=== PATIENT | female | born 1975 | race African-American/Black ===

== ENCOUNTER 2016-07-07 15:59 | Inpatient (IN) | payer SELFPAY ==
[~2016-07-07] VITALS: Ht 167.6 cm; Wt 126.1 kg
[2016-07-07] VITALS (8 sets, daily range): BP systolic 151–186; BP diastolic 77–98
[~2016-07-07 15:59] MED LIST: CALCIUM CHLORIDE 1,000 MG/10 ML DISP.SYRIN IV ONE; EPINEPHRINE 1 MG/10 ML DISP.SYRIN. ONE; EPINEPHRINE 30 MG/30 ML VIAL. ONE; SODIUM BICARB ADULT 8.4% 50 MEQ/50 ML DISP.SYRIN. ONE
[2016-07-07] MEDS: IV NORMAL SALINE 1000ML BAG 1,000 ML IV SCH ×7 (16:10→23:25)
[2016-07-07] MEDS ORDERED: PROPOFOL 50 ML IV ONE (16:29)
[2016-07-07 17:12] LABS: HCO3 ABG 11 mmol/L (21-28); PCO2 ABG 33 mmHg (35-46); PO2 ABG 305 mmHg (75-108); SAT O2 ABG 99 % (92-99)
[2016-07-07 17:13] LABS: PH ABG 7.15 (7.35-7.45)
[2016-07-07] MEDS: PROPOFOL 100 ML IV PRN ×2 (17:28→19:48)
[2016-07-07] MEDS ORDERED: MINERAL OIL/PETROLATUM,WHITE OPHTH OINT 3.5GM TUBE. OU PRN (17:30)
[2016-07-07] MEDS ORDERED: MORPHINE SULFATE 2 MG/ML DISP.SYRIN. IV PRN (17:30)
[2016-07-07] MEDS ORDERED: CALCIUM CHLORIDE 1,000 MG/10 ML DISP.SYRIN IV ONE ×2 (17:30→18:00)
[2016-07-07] MEDS ORDERED: MORPHINE SULFATE 4 MG/ML DISP.SYRIN. IV PRN (17:30)
[2016-07-07] MEDS ORDERED: MEPERIDINE PF 25 MG/ML VIAL. IV PRN (17:30)
[2016-07-07] MEDS ORDERED: VECURONIUM BOLUS 10 MG VIAL. IV PRN (17:30)
[2016-07-07] MEDS ORDERED: FENTANYL PF 100 MCG/2 ML VIAL. IV PRN ×3 (17:30)
[2016-07-07] MEDS ORDERED: 0.9 % SODIUM CHLORIDE 10 ML DISP.SYRIN. IV PRN (17:30)
[2016-07-07] MEDS ORDERED: LORAZEPAM 2 MG/ML VIAL IV PRN (17:30)
[2016-07-07 17:31] LABS: BASO # 0.1 x10^3/uL (0.0-0.2); BASO % 1 % (0-3); EOS % 2 % (0-3); HEMATOCRIT 42.5 % (36.0-47.0); HEMOGLOBIN 12.7 g/dL (12.0-15.5); LYMPH # 2.8 x10^3/uL (1.0-4.8); LYMPH % 28 % (24-48); MEAN CORPUSCULAR HEMOGLOBIN 30 pg (25-35); MEAN CORPUSCULAR HGB CONC 30 g/dL (31-37); MEAN CORPUSCULAR VOLUME 101 fL (79-100); MONO % 6 % (0-9); NEUT % 64 % (31-73); PLATELET COUNT 206 x10^3/uL (140-400); RED CELL DISTRIBUTION WIDTH 17.4 % (11.5-14.5); WHITE BLOOD COUNT 9.9 x10^3/uL (4.0-11.0)
[2016-07-07 17:35] LABS: INR 1.2 (0.8-1.1); PROTHROMBIN TIME PATIENT 14.5 SEC (11.7-14.0)
[2016-07-07 17:46] LABS: ALBUMIN 1.7 g/dL (3.4-5.0); CALCIUM 9.1 mg/dL (8.5-10.1); CREATININE 3.9 mg/dL (0.6-1.0); DIRECT BILIRUBIN 0.6 mg/dL (0.0-0.2); GFR 15.4; MAGNESIUM 2.1 mg/dL (1.8-2.4); TOTAL PROTEIN 6.5 g/dL (6.4-8.2)
[2016-07-07 17:55] LABS: POTASSIUM 2.8 mmol/L (3.5-5.1)
[2016-07-07] MEDS ORDERED: EPINEPHRINE 30 MG/30 ML VIAL. ONE (18:00)
[2016-07-07] MEDS: ACETAMINOPHEN 650 MG/20.3 ML SOLUTION. NG SCH (18:00)
[2016-07-07] MEDS ORDERED: DOPAMINE 400MG/250ML PREMIX BAG. IV ONE (18:00)
[2016-07-07] MEDS ORDERED: SODIUM BICARB ADULT 8.4% 50 MEQ/50 ML DISP.SYRIN. ONE ×2 (18:00)
[2016-07-07] MEDS ORDERED: EPINEPHRINE 1 MG/10 ML DISP.SYRIN. ONE (18:00)
[2016-07-07 18:17] LABS: BILIRUBIN,URINE SMALL (NEG); GLUCOSE,URINE >=1000 mg/dL (NEG); NITRITE,URINE NEGATIVE (NEG); PROTEIN,URINE >=300 mg/dL (NEG-TRACE)
[2016-07-07 18:18] LABS: % EOS 2 % (0-5); PLT ESTIMATE ADEQUATE (ADEQUATE)
[2016-07-07 18:19] LABS: ANISOCYTOSIS SLIGHT; POLYCHROMASIA SLIGHT
[2016-07-07 18:23] LABS: BARBITURATES NEG (NEG); BENZODIAZEPINES NEG (NEG); CANNABINOIDS NEG (NEG); COCAINE NEG (NEG); METHADONE NEG (NEG); OPIATES NEG (NEG); PHENCYCLIDINE NEG (NEG)
[2016-07-07 18:24] LABS: BACTERIA,URINE MODERATE /HPF (0-FEW); ETHANOL, URINE NEG (NEG); SQUAMOUS EPITHELIAL CELL,UR FEW /LPF
[2016-07-07 18:26] LABS: CKMB INDEX 1.8 % (0-4); CKMB MASS 5.8 ng/mL (0.0-3.6)
--- NOTE | 2016-07-07 18:45 | PHYS DOC ---
Past Medical History Past Medical History: CHF, Diabetes-Type II, Hypertension Additional Past Medical Histor: CKD on temp dialysis in 2016 Additional Past Surgical Histo: Temp dialysis catheter Social History Narrative: Unknown Adult General Chief Complaint Chief Complaint: CPR/FULL ARREST HPI HPI Patient is a 40 year old female who presents by EMS with ongoing chest compressions for cardiac arrest witnessed by friend in a public place. She became unresponsive acutely and was found in agonal rhythm by EMS. ACLS was started. She had a brief ROSC and then ACLS was started again for asystole. She was given epinephrine IV. iGel was placed by EMS for airway. Left tibial IO was placed by EMS. Family here gave past history and states she was in normal state of health prior to this. Review of Systems Review of Systems Unable to assess secondary to clinical status Current Medications Current Medications Current Medications Medications (Trade) Dose Ordered Sig/[place] Start Time Stop Time Status Last Admin Dose Admin Acetaminophen (Tylenol) 650 mg Q6HRS 07/07/16 18:00 07/08/16 17:59 Calcium Chloride 1000 mg 1,000 mg 1X ONCE 07/07/16 17:30 07/07/16 17:38 DC 07/07/16 17:18 1,000 MG Fentanyl Citrate 30 ml @ 2.5 mls/hr CONT PRN PRN 07/07/16 17:30 Fentanyl Citrate (Fentanyl 2ml Vial) 25 mcg PRN Q30MIN PRN 07/07/16 17:30 Lorazepam 1 mg 1 mg PRN Q30MIN PRN 07/07/16 17:30 Meperidine HCl (Demerol) 12.5 mg PRN Q30MIN PRN 07/07/16 17:30 Morphine Sulfate 4 mg PRN Q1HR PRN 07/07/16 17:30 Multi-Ingred Cream/Lotion/Oil/ Oint (Artificial Tears Eye Oint) 1 silvano PRN Q6HRS PRN 07/07/16 17:30 Propofol (Diprivan) 100 ml @ 0 mls/hr CONT PRN 07/07/16 17:30 07/07/16 19:48 15.8 MLS/HR Sodium Chloride (Iv Sodium Chloride 0.9% 1000ml Bag) 1,000 ml @ 1,000 mls/hr Q1H 07/07/16 17:25 07/07/16 20:04 1,000 MLS/HR Sodium Chloride (Normal Saline Flush) 3 ml QSHIFT PRN 07/07/16 17:30 Vecuronium [place] (Norcuron Bolus) 10 mg PRN Q30MIN PRN 07/07/16 17:30 Allergies Allergies Allergies Coded Allergies Type Severity Reaction Last Updated Verified No Known Drug Allergies 07/07/16 No Physical Exam Physical Exam Constitutional: Nonresponsive. [] HENT: Normocephalic, atraumatic, bilateral external ears normal, oropharynx moist, no oral exudates, nose normal. [] Eyes: Pupils equal and fixed mid. [] Neck: Normal range of motion, no palpable step-off, supple. [] Cardiovascular: Pulseless [] Lungs & Thorax: Equal bagged breath sounds, course bilaterally [] Abdomen: Bowel sounds normal, soft, no tenderness, distended. [] Skin: Warm, dry, no erythema, no rash. [] Back: No obvious deformity or discoloration. [] Extremities: No tenderness, ROM intact, 2 +bilateral LE edema. [] Neurologic: GCS 3. [] Psychologic: Unable to assess secondary to clinical status. [] Current Patient Data Vital Signs Vital Signs Date Time Temp Pulse Resp B/P Pulse Ox O2 Delivery O2 Flow Rate FiO2 07/07/16 18:00 89 Ventilator 07/07/16 18:00 76 20 149/65 Lab Values Laboratory Tests Test 07/07/16 16:00 07/07/16 16:30 White Blood Count 9.9x10^3/uL (4.0-11.0) Red Blood Count 4.20x10^6/uL (3.50-5.40) Hemoglobin 12.7g/dL (12.0-15.5) Hematocrit 42.5% (36.0-47.0) Mean Corpuscular Volume 101fL (79-100) H Mean Corpuscular Hemoglobin 30pg (25-35) Mean Corpuscular Hemoglobin Concent 30g/dL (31-37) L Red Cell Distribution Width 17.4% (11.5-14.5) H Platelet Count 206x10^3/uL (140-400) Neutrophils (%) (Auto) 64% (31-73) Lymphocytes (%) (Auto) 28% (24-48) Monocytes (%) (Auto) 6% (0-9) Eosinophils (%) (Auto) 2% (0-3) Basophils (%) (Auto) 1% (0-3) Neutrophils # (Auto) 6.3x10^3uL (1.8-7.7) Lymphocytes # (Auto) 2.8x10^3/uL (1.0-4.8) Monocytes # (Auto) 0.6x10^3/uL (0.0-1.1) Eosinophils # (Auto) 0.2x10^3/uL (0.0-0.7) Basophils # (Auto) 0.1x10^3/uL (0.0-0.2) Segmented Neutrophils % 51% (35-66) Band Neutrophils % 4% (0-9) Lymphocytes % 33% (24-48) Monocytes % 7% (0-10) Eosinophils % 2% (0-5) Metamyelocytes % 2% (0-0) H Myelocytes % 1% (0-0) H Platelet Estimate Adequate (ADEQUATE) Polychromasia Slight Anisocytosis Slight Prothrombin Time 14.5SEC (11.7-14.0) H Prothrombin Time INR 1.2 (0.8-1.1) H PTT 43SEC (24-38) H Sodium Level 138mmol/L (136-145) Potassium Level 2.8mmol/L (3.5-5.1) *L Chloride Level 101mmol/L (98-107) Carbon Dioxide Level 19mmol/L (21-32) L Anion Gap 18 (6-14) H Blood Urea Nitrogen 35mg/dL (7-20) H Creatinine 3.9mg/dL (0.6-1.0) H Estimated GFR (Cockcroft-Gault) 15.4 Glucose Level 612mg/dL (70-99) *H Glucose (Fingerstick) 401mg/dL (70-99) H Lactic Acid Level 8.8mmol/L (0.4-2.0) *H Calcium Level 9.1mg/dL (8.5-10.1) Magnesium Level 2.1mg/dL (1.8-2.4) Total Bilirubin 1.0mg/dL (0.2-1.0) Direct Bilirubin 0.6mg/dL (0.0-0.2) H Aspartate Amino Transferase (AST) 66U/L (15-37) H Alanine Aminotransferase (ALT) 53U/L (14-59) Alkaline Phosphatase 537U/L (46-116) H Creatine Kinase 323U/L (26-192) H Creatine Kinase MB (Mass) 5.8ng/mL (0.0-3.6) H Creatine Kinase MB Relative Index 1.8% (0-4) Troponin I Quantitative 0.194ng/mL (0.000-0.055) GJ-[id number]-C-Type Natriuretic Peptide 07399zc/mL (0-124) H Total Protein 6.5g/dL (6.4-8.2) Albumin 1.7g/dL (3.4-5.0) L Amylase Level 30U/L (25-115) O2 Saturation 99% (92-99) Arterial Blood pH 7.15 (7.35-7.45) *L Arterial Blood pCO2 at Patient Temp 33mmHg (35-46) L Arterial Blood pO2 at Patient Temp 305mmHg (75-108) H Arterial Blood HCO3 11mmol/L (21-28) L Arterial Blood Base Excess -17mmol/L (-3-3) L FiO2 100.0 Laboratory Tests 07/07/16 16:00 Laboratory Tests 07/07/16 16:00 EKG EKG EKG as interpreted by me as sinus tachycardia, rate 108, T wave inversions in lateral leads, doesn't meet STEMI criteria, MN 152, QTC 495, no ectopy Radiology/Procedures Radiology/Procedures Chest x-ray as interpreted by me as endotracheal tube appropriately placed, OG tube appropriately placed, and central venous line appropriately placed; haziness in right lung field Course & Med Decision Making Course & Med Decision Making Pertinent Labs and Imaging studies reviewed. (See chart for details) Patient arrest pulseless in PEA. Please see nursing notes for exact details of resuscitation. She was intubated by me with ease. I attempted placing central venous line in left femoral vein without success (because hit artery so changed location after holding pressure for >10 min achieving hemostasis) and right IJ without success (scar tissue would not allow guide wire to advance past 8cm), then placed right subclavian with some resistance of scar tissue but had good venous return and success. XR shows concern for pneumonia vs contusion vs edema. Broad spectrum antibiotics were started. She was given IVFs for ?acute on chronic renal failure; as well as lasix for likely some fluid overload. Discussed case with Dr. Rivera, who will admit. Cardiology, Pulmonology, and Nephrology consults placed. Discussed case with multiple family members. Dragon Disclaimer Dragon Disclaimer This electronic medical record was generated, in whole or in part, using a voice recognition dictation system. Intubation Procedure Intub Indication: Respiratory failure Consent: Unable to give consent due to emergent nature. Medications Used: see nursing note Procedure: The patient was placed in the appropriate position. Intubation was performed via glidescope curved blade, 7.5 endotracheal tube. Endotracheal tube secured 22 at the teeth. Some liquid vomitus was suctioned from pharynx. Initial confirmation of placement included bilateral breath sounds, tube fogging , adequate chest rise, adequate pulse oximetry reading. A chest x-ray to verify correct placement of the tube showed appropriate tube position. The patient tolerated the procedure well. Complications: none. Central Line Placement Proc Central Line Indication: Vascular access Consent: The patient provided consent for this procedure. Procedure: The patient was positioned appropriately and the skin over the right subclavian vein was prepped and draped in a sterile fashion. Ultrasound guidance utilized. A large bore needle was used to identify the vein. A guide wire was then inserted into the vein through the needle. A triple lumen catheter was then inserted into the vessel over the guide wire using the Seldinger technique. All ports showed good, free flowing blood return and were flushed with saline solution. The catheter was then securely fastened to the skin with sutures and covered with a sterile dressing. A post procedure X-ray was ordered. The patient tolerated the procedure well. Complications: none. [] Critical Care Time Critical care time was 75 minutes exclusive of procedures. Departure Departure Impression: Primary Impression: Cardiac arrest Additional Impression: Respiratory failure Disposition: ADMITTED INPATIENT Condition: CRITICAL Referrals: UNKNOWN PCP NAME (PCP) Problem Qualifiers Additional Impression: Respiratory failure Chronicity: acute Respiratory failure complication: hypoxia Qualified Code : J96.01 - Acute respiratory failure with hypoxia Bony GORDON MD Jul 07, 2016 18:45
[2016-07-07] MEDS ORDERED: LEVOFLOXACIN PER PHARMACY MC PRN (19:00)
[2016-07-07] MEDS ORDERED: VANCOMYCIN PER PHARMACY MC PRN (19:00)
[2016-07-07] MEDS ORDERED: PIP/TAZO PER PHARMACY MC PRN (19:00)
[2016-07-07] MEDS: POTASSIUM CHLORIDE 20MEQ 50 ML IV SCH ×3 (19:22→23:44)
--- NOTE | 2016-07-07 19:27 | PDOC1 ---
History and Physical Identification/Chief Complaint Chief Complaint CARDIAC ARREST Problems: Source Source: Caregiver, Chart review Past Medical History Past Medical History CHF, KIDNEY PROBLEMS, DM Family History Family History: Hypertension Current Problem List Problem List Problems Medical Problems: (1) Cardiac arrest Status: Acute (2) Respiratory failure Status: Acute Current Medications Current Medications Current Medications Medications (Trade) Dose Ordered Sig/[place] Start Time Stop Time Status Last Admin Dose Admin Acetaminophen (Tylenol) 650 mg PRN Q6HRS PRN 07/08/16 17:30 Aspirin (Aspirin) 300 mg DAILY 07/08/16 09:00 Calcium Chloride 1,000 mg 1X ONCE 07/07/16 17:30 07/07/16 17:38 DC 07/07/16 17:18 1,000 MG Chlorhexidine Gluconate (Peridex) 15 ml BID 07/07/16 21:00 Famotidine (Pepcid) 20 mg BID 07/07/16 21:00 Fentanyl Citrate 30 ml @ 2.5 mls/hr CONT PRN PRN 07/07/16 17:30 Fentanyl Citrate (Fentanyl 2ml Vial) 25 mcg PRN Q30MIN PRN 07/07/16 17:30 Furosemide 40 mg 40 mg 1X ONCE 07/07/16 19:30 07/07/16 19:31 Info 1 ea DAILY PRN 07/09/16 17:30 Levofloxacin/ Dextrose 150 ml @ 100 mls/hr 1X ONCE 07/07/16 19:30 07/07/16 20:59 Levofloxacin/ Dextrose 1 each 1 each PRN DAILY PRN 07/07/16 19:00 UNV Lorazepam 1 mg 1 mg PRN Q30MIN PRN 07/07/16 17:30 Meperidine HCl (Demerol) 12.5 mg PRN Q30MIN PRN 07/07/16 17:30 Morphine Sulfate 4 mg PRN Q1HR PRN 07/07/16 17:30 Multi-Ingred Cream/Lotion/Oil/ Oint (Artificial Tears Eye Oint) 1 silvano PRN Q6HRS PRN 07/07/16 17:30 Piperacillin Sod/ Tazobactam Sod (Zosyn Per Pharmacy) 1 each PRN DAILY PRN 07/07/16 19:00 UNV Piperacillin Sod/ Tazobactam Sod/ Sodium Chloride (Zosyn/Iv Sodium Chloride 0.9% 50ml) 50 ml @ 100 mls/hr 1X ONCE 07/07/16 19:30 07/07/16 19:59 Potassium Chloride 50 ml @ 50 mls/hr Q1H 07/07/16 19:30 07/07/16 21:29 07/07/16 19:22 50 MLS/HR Propofol (Diprivan) 100 ml @ 0 mls/hr CONT PRN 07/07/16 17:30 07/07/16 17:28 3.1 MLS/HR Sodium Chloride (Iv Sodium Chloride 0.9% 1000ml Bag) 1,000 ml @ 175 mls/hr 1X ONCE 07/07/16 19:30 07/08/16 01:12 Sodium Chloride (Normal Saline Flush) 3 ml QSHIFT PRN 07/07/16 17:30 Vancomycin HCl (Vanco Per Pharmacy) 1 each PRN DAILY PRN 07/07/16 19:00 UNV Vecuronium [place] (Norcuron Bolus) DOSE AT 0.1 mg/kg PRN Q30MIN PRN 07/07/16 17:30 UNV Allergies Allergies Allergies Coded Allergies Type Severity Reaction Last Updated Verified No Known Drug Allergies 07/07/16 No ROS Review of System not able to obtain, Pt is intubated and sedated. Physical Exam Physical Exam GEN.: Intubated and Sedated. obese HEENT: Head is normocephalic, atraumatic NECK: Supple. subclavian venous access. LUNGS: basal rales. normal airflow. HEART: RRR, S1, S2 present. Peripheral pulses intact ABDOMEN: Soft, nontender. Positive bowel sounds. EXTREMITIES: + 2 edema. NEUROLOGIC: Intubated, sedated. PSYCHIATRIC: SKIN: dry, Vitals Vitals Vital Signs Date Time Temp Pulse Resp B/P Pulse Ox O2 Delivery O2 Flow Rate FiO2 07/07/16 18:00 89 Ventilator 07/07/16 16:21 95 163/70 Labs Labs Laboratory Tests Test 07/07/16 16:00 07/07/16 16:30 07/07/16 18:11 White Blood Count 9.9x10^3/uL (4.0-11.0) Red Blood Count 4.20x10^6/uL (3.50-5.40) Hemoglobin 12.7g/dL (12.0-15.5) Hematocrit 42.5% (36.0-47.0) Mean Corpuscular Volume 101fL (79-100) Mean Corpuscular Hemoglobin 30pg (25-35) Mean Corpuscular Hemoglobin Concent 30g/dL (31-37) Red Cell Distribution Width 17.4% (11.5-14.5) Platelet Count 206x10^3/uL (140-400) Neutrophils (%) (Auto) 64% (31-73) Lymphocytes (%) (Auto) 28% (24-48) Monocytes (%) (Auto) 6% (0-9) Eosinophils (%) (Auto) 2% (0-3) Basophils (%) (Auto) 1% (0-3) Neutrophils # (Auto) 6.3x10^3uL (1.8-7.7) Lymphocytes # (Auto) 2.8x10^3/uL (1.0-4.8) Monocytes # (Auto) 0.6x10^3/uL (0.0-1.1) Eosinophils # (Auto) 0.2x10^3/uL (0.0-0.7) Basophils # (Auto) 0.1x10^3/uL (0.0-0.2) Segmented Neutrophils % 51% (35-66) Band Neutrophils % 4% (0-9) Lymphocytes % 33% (24-48) Monocytes % 7% (0-10) Eosinophils % 2% (0-5) Metamyelocytes % 2% (0-0) Myelocytes % 1% (0-0) Platelet Estimate Adequate (ADEQUATE) Polychromasia Slight Anisocytosis Slight Prothrombin Time 14.5SEC (11.7-14.0) Prothromb Time International Ratio 1.2 (0.8-1.1) Activated Partial Thromboplast Time 43SEC (24-38) Sodium Level 138mmol/L (136-145) Potassium Level 2.8mmol/L (3.5-5.1) Chloride Level 101mmol/L (98-107) Carbon Dioxide Level 19mmol/L (21-32) Anion Gap 18 (6-14) Blood Urea Nitrogen 35mg/dL (7-20) Creatinine 3.9mg/dL (0.6-1.0) Estimated GFR (Cockcroft-Gault) 15.4 Glucose Level 612mg/dL (70-99) Glucose (Fingerstick) 401mg/dL (70-99) Lactic Acid Level 8.8mmol/L (0.4-2.0) Calcium Level 9.1mg/dL (8.5-10.1) Magnesium Level 2.1mg/dL (1.8-2.4) Total Bilirubin 1.0mg/dL (0.2-1.0) Direct Bilirubin 0.6mg/dL (0.0-0.2) Aspartate Amino Transf (AST/SGOT) 66U/L (15-37) Alanine Aminotransferase (ALT/SGPT) 53U/L (14-59) Alkaline Phosphatase 537U/L (46-116) Creatine Kinase 323U/L (26-192) Creatine Kinase MB (Mass) 5.8ng/mL (0.0-3.6) Creatine Kinase MB Relative Index 1.8% (0-4) Troponin I Quantitative 0.194ng/mL (0.000-0.055) KV-Utp-J-Type Natriuretic Peptide 75212tv/mL (0-124) Total Protein 6.5g/dL (6.4-8.2) Albumin 1.7g/dL (3.4-5.0) Amylase Level 30U/L (25-115) O2 Saturation 99% (92-99) Arterial Blood pH 7.15 (7.35-7.45) Arterial Blood pCO2 at Patient Temp 33mmHg (35-46) Arterial Blood pO2 at Patient Temp 305mmHg (75-108) Arterial Blood HCO3 11mmol/L (21-28) Arterial Blood Base Excess -17mmol/L (-3-3) FiO2 100.0 Urine Collection Type U cath Urine Color Yellow Urine Clarity Clear Urine pH 7.0 Urine Specific [place] 1.020 Urine Protein >=300mg/dL (NEG-TRACE) Urine Glucose (UA) >=1000mg/dL (NEG) Urine Ketones (Stick) Negativemg/dL (NEG) Urine Blood Moderate (NEG) Urine Nitrite Negative (NEG) Urine Bilirubin Small (NEG) Urine Urobilinogen Dipstick 1.0mg/dL (0.2 mg/dL) Urine Leukocyte Esterase Negative (NEG) Urine RBC 11-20/HPF (0-2) Urine WBC 1-4/HPF (0-4) Urine Squamous Epithelial Cells Few/LPF Urine Amorphous Sediment Present/HPF Urine Bacteria Moderate/HPF (0-FEW) Urine Mucus Slight/LPF Urine Opiates Screen Neg (NEG) Urine Methadone Screen Neg (NEG) Urine Barbiturates Neg (NEG) Urine Phencyclidine Screen Neg (NEG) Urine Amphetamine/Methamphetamine Neg (NEG) Urine Benzodiazepines Screen Neg (NEG) Urine Cocaine Screen Neg (NEG) Urine Cannabinoids Screen Neg (NEG) Urine Ethyl Alcohol Neg (NEG) Laboratory Tests Test 07/07/16 16:00 07/07/16 16:30 07/07/16 18:11 White Blood Count 9.9x10^3/uL (4.0-11.0) Red Blood Count 4.20x10^6/uL (3.50-5.40) Hemoglobin 12.7g/dL (12.0-15.5) Hematocrit 42.5% (36.0-47.0) Mean Corpuscular Volume 101fL (79-100) Mean Corpuscular Hemoglobin 30pg (25-35) Mean Corpuscular Hemoglobin Concent 30g/dL (31-37) Red Cell Distribution Width 17.4% (11.5-14.5) Platelet Count 206x10^3/uL (140-400) Neutrophils (%) (Auto) 64% (31-73) Lymphocytes (%) (Auto) 28% (24-48) Monocytes (%) (Auto) 6% (0-9) Eosinophils (%) (Auto) 2% (0-3) Basophils (%) (Auto) 1% (0-3) Neutrophils # (Auto) 6.3x10^3uL (1.8-7.7) Lymphocytes # (Auto) 2.8x10^3/uL (1.0-4.8) Monocytes # (Auto) 0.6x10^3/uL (0.0-1.1) Eosinophils # (Auto) 0.2x10^3/uL (0.0-0.7) Basophils # (Auto) 0.1x10^3/uL (0.0-0.2) Segmented Neutrophils % 51% (35-66) Band Neutrophils % 4% (0-9) Lymphocytes % 33% (24-48) Monocytes % 7% (0-10) Eosinophils % 2% (0-5) Metamyelocytes % 2% (0-0) Myelocytes % 1% (0-0) Platelet Estimate Adequate (ADEQUATE) Polychromasia Slight Anisocytosis Slight Prothrombin Time 14.5SEC (11.7-14.0) Prothromb Time International Ratio 1.2 (0.8-1.1) Activated Partial Thromboplast Time 43SEC (24-38) Sodium Level 138mmol/L (136-145) Potassium Level 2.8mmol/L (3.5-5.1) Chloride Level 101mmol/L (98-107) Carbon Dioxide Level 19mmol/L (21-32) Anion Gap 18 (6-14) Blood Urea Nitrogen 35mg/dL (7-20) Creatinine 3.9mg/dL (0.6-1.0) Estimated GFR (Cockcroft-Gault) 15.4 Glucose Level 612mg/dL (70-99) Glucose (Fingerstick) 401mg/dL (70-99) Lactic Acid Level 8.8mmol/L (0.4-2.0) Calcium Level 9.1mg/dL (8.5-10.1) Magnesium Level 2.1mg/dL (1.8-2.4) Total Bilirubin 1.0mg/dL (0.2-1.0) Direct Bilirubin 0.6mg/dL (0.0-0.2) Aspartate Amino Transf (AST/SGOT) 66U/L (15-37) Alanine Aminotransferase (ALT/SGPT) 53U/L (14-59) Alkaline Phosphatase 537U/L (46-116) Creatine Kinase 323U/L (26-192) Creatine Kinase MB (Mass) 5.8ng/mL (0.0-3.6) Creatine Kinase MB Relative Index 1.8% (0-4) Troponin I Quantitative 0.194ng/mL (0.000-0.055) VK-Gsq-P-Type Natriuretic Peptide 35156xu/mL (0-124) Total Protein 6.5g/dL (6.4-8.2) Albumin 1.7g/dL (3.4-5.0) Amylase Level 30U/L (25-115) O2 Saturation 99% (92-99) Arterial Blood pH 7.15 (7.35-7.45) Arterial Blood pCO2 at Patient Temp 33mmHg (35-46) Arterial Blood pO2 at Patient Temp 305mmHg (75-108) Arterial Blood HCO3 11mmol/L (21-28) Arterial Blood Base Excess -17mmol/L (-3-3) FiO2 100.0 Urine Collection Type U cath Urine Color Yellow Urine Clarity Clear Urine pH 7.0 Urine Specific [place] 1.020 Urine Protein >=300mg/dL (NEG-TRACE) Urine Glucose (UA) >=1000mg/dL (NEG) Urine Ketones (Stick) Negativemg/dL (NEG) Urine Blood Moderate (NEG) Urine Nitrite Negative (NEG) Urine Bilirubin Small (NEG) Urine Urobilinogen Dipstick 1.0mg/dL (0.2 mg/dL) Urine Leukocyte Esterase Negative (NEG) Urine RBC 11-20/HPF (0-2) Urine WBC 1-4/HPF (0-4) Urine Squamous Epithelial Cells Few/LPF Urine Amorphous Sediment Present/HPF Urine Bacteria Moderate/HPF (0-FEW) Urine Mucus Slight/LPF Urine Opiates Screen Neg (NEG) Urine Methadone Screen Neg (NEG) Urine Barbiturates Neg (NEG) Urine Phencyclidine Screen Neg (NEG) Urine Amphetamine/Methamphetamine Neg (NEG) Urine Benzodiazepines Screen Neg (NEG) Urine Cocaine Screen Neg (NEG) Urine Cannabinoids Screen Neg (NEG) Urine Ethyl Alcohol Neg (NEG) VTE Prophylaxis Ordered VTE Prophylaxis Devices: Yes VTE Pharmacological Prophylaxi: Yes BEN HURD MD Jul 07, 2016 19:27
[2016-07-07] MEDS ORDERED: PIPERACILLIN/TAZOBACTAM 3.375 GM in IV NORMAL SALINE 50ML 50 ML IV ONE (19:30)
[2016-07-07] MEDS ORDERED: FUROSEMIDE 40 MG/4 ML VIAL IVP ONE (19:30)
[2016-07-07] MEDS ORDERED: IV NORMAL SALINE 1000ML BAG 1,000 ML IV ONE (19:30)
[2016-07-07] MEDS ORDERED: DEXTROSE 50% 25 GM / 50ML DISP.SYRIN. IV PRN ×2 (19:45→21:00)
[2016-07-07] MEDS ORDERED: ONDANSETRON PF 4 MG/2 ML VIAL. IV PRN (20:00)
[2016-07-07] MEDS ORDERED: ACETAMINOPHEN 325 MG TABLET. PO PRN (20:00)
[2016-07-07] MEDS ORDERED: HYDROCODONE/APAP 5/325MG TABLET. PO PRN (20:00)
[2016-07-07] MEDS ORDERED: hydrALAZINE 20 MG/ML VIAL. IVP PRN (20:00)
[2016-07-07] MEDS ORDERED: ALBUTEROL SULFATE 2.5 MG/3 ML NEBU. NEB PRN (20:00)
[2016-07-07] MEDS ORDERED: INSULIN ASPART 300 UNITS/3 ML INSULN.PEN SQ ONE (20:00)
[2016-07-07] MEDS ORDERED: VANCOMYCIN 2 GM in IV NORMAL SALINE 500ML BAG 500 ML IV ONE (20:30)
[2016-07-07 21:13] LABS: CALCIUM 8.8 mg/dL (8.5-10.1); GFR 14.9; MAGNESIUM 1.7 mg/dL (1.8-2.4); PHOSPHORUS 6.6 mg/dL (2.6-4.7); POTASSIUM 3.2 mmol/L (3.5-5.1)
[2016-07-07] MEDS: INSULIN REGULAR VIAL 150 UNIT in 0.9 % SODIUM CHLORIDE 150ML 150 ML IV PRN (21:43)
[2016-07-07] MEDS: FENTANYL STANDARD PCA 30 ML IV PRN (21:58)
--- NOTE | 2016-07-07 22:07 | HP ---
ADMIT DATE: 07/07/2016 CHIEF COMPLAINT: Cardiac arrest. HISTORY OF PRESENT ILLNESS: A 40-year-old female patient with history of type 2 diabetes mellitus, hypertension, congestive heart failure, in the past hemodialysis, brought to the hospital by EMS for cardiac arrest. Reportedly, [place] found unresponsive by her friend, immediately chest compressions were started. As per the report, the patient was having some agonal breathing and EMS initiated ACLS. She got brief return of spontaneous circulation; however, she went back to asystole and ACLS started again. As per the EMS report, they did not use any vasopressors. The patient was placed on mechanical ventilation at the time of arrival to the ER. At the time of examination, the patient's sister and cousin was there at the bedside, no other family members available; however, they could not able to confirm the history or the past medical history, or exam. Most of the care was taken by the patient at [facility]. Reportedly the patient had a history of congestive heart failure and possible dialysis in the past. As per the cousin, lately, she has been complaining of leg swelling and bloating sensation in the body and she did not have a family doctor. She is not taking any medications at the time. They are not able to provide any other history. PAST MEDICAL HISTORY: Reportedly CHF, type 2 diabetes mellitus, hypertension, CKD, on dialysis in the past. SOCIAL HISTORY, FAMILY HISTORY AND PERSONAL HISTORY: Unknown. LABORATORY FINDINGS: WBC 9.9, hemoglobin is 12.7, MCV is 100.1, platelets 206. Chemistry: Sodium 138, potassium 2.8, chloride 101, carbon dioxide 19, gap is 18, BUN is 35, creatinine 3.9, GFR is 15.4, glucose 612, calcium 9.1, magnesium 2.1, direct bilirubin 0.6, AST 66, alkaline phosphatase 537. ProBNP is 24,820, albumin is 1.7. Coagulation: INR is 1.2, PT is 14.5. Blood gas, ABG is 7.15, pO2 is 305 at FiO2 100%. Urine pH is 7, urine protein is more than 300, glucose is more than 1000, ketones negative, nitrites negative, bilirubin small. Toxicology negative. IMAGING STUDIES: Chest x-ray personally reviewed, vascular congestion with possible infiltrates in the right lower lobe. ASSESSMENT AND PLAN: 1. Pulseless electrical activity cardiac arrest. 2. Acute respiratory failure, on mechanical ventilation. 3. Hyperglycemia. 4. Acute renal failure. 5. Metabolic acidosis. 6. Hypokalemia, severe. 7. Congestive heart failure. PLAN: 1. The patient has been placed on mechanical ventilation and she is currently on propofol for sedation. 2. She will be admitted to critical care unit. Pulmonology will be consulted. 3. Will consult Cardiology and continue monitoring of troponins. 4. Consult Nephrology for possible hemodialysis. 5. Potassium has been replaced. 6. I will order 14 units of subQ NovoLog x 1 and monitor glucose closely. 7. We will give Lasix 40 mg IV x 1. 8. The patient will be started for suspected aspiration pneumonia. She was initiated on Levaquin, Zosyn and vancomycin, pharmacy to dose vancomycin. 9. Monitor electrolytes very closely. 10. Cousin was there at bedside and update provided. The patient's condition is very critical at this time and also obtain an echocardiogram. 11. Family members will bring the patient's home medications and past history. 12. Overall prognosis is poor. The patient's condition is critical. Total critical care time spent is 35 minutes. BEN HURD MD DR: KEVIN/heriberto JOB#: [id number] / [id number] PIPER
[2016-07-07] MEDS ORDERED: MAGNESIUM SULFATE 4GM 100 ML IV ONE (23:30)
[2016-07-07] MEDS: CHLORHEXIDINE 0.12% 15 ML MOUTHWASH. MM SCH (23:44)
[2016-07-07] MEDS ORDERED: MAGNESIUM SULFATE 2GM 50 ML IV ONE (23:45)
[2016-07-07] MEDS: FAMOTIDINE 20 MG/2 ML VIAL IVP SCH (23:45)
[2016-07-08] VITALS (11 sets, daily range): BP systolic 71–217; BP diastolic 42–131
[2016-07-08] MEDS: PROPOFOL 100 ML IV PRN ×3 (00:28→08:32)
[2016-07-08 00:32] LABS: HEMATOCRIT 36.8 % (36.0-47.0); HEMOGLOBIN 11.6 g/dL (12.0-15.5); RED BLOOD COUNT 3.88 x10^6/uL (3.50-5.40); RED CELL DISTRIBUTION WIDTH 16.2 % (11.5-14.5)
[2016-07-08 00:46] LABS: CALCIUM 8.9 mg/dL (8.5-10.1); CREATININE 3.9 mg/dL (0.6-1.0); GFR 15.4; MAGNESIUM 1.5 mg/dL (1.8-2.4); PHOSPHORUS 5.7 mg/dL (2.6-4.7)
[2016-07-08 00:50] LABS: INR 1.1 (0.8-1.1); PROTHROMBIN TIME PATIENT 13.4 SEC (11.7-14.0)
[2016-07-08] MEDS: PIPERACILLIN/TAZOBACTAM 3.375 GM in IV NORMAL SALINE 50ML 50 ML IV SCH ×2 (00:54→06:03)
[2016-07-08] MEDS: POTASSIUM CHLORIDE 20MEQ 50 ML IV SCH ×3 (00:55→06:02)
[2016-07-08 01:03] LABS: BASE EXCESS COOX -7 mmol/L (-3-3); CARBON MONOXIDE 0.5 % (0.0-1.9); CORRECTED PCO2 COOX 31 mmHg; CORRECTED PH COOX 7.38; CORRECTED PO2 COOX 61 mmHg; HCO3 COOX 19 mmol/L (21-28); METHEMOGLOBIN 0.1 % (0.0-1.9); OXYHEMOGLOBIN 94.7 %; PCO2 COOX 38 mmHg (35-46); PH COOX 7.31 (7.35-7.45); PO2 COOX 83 mmHg (75-108); SAT O2 COOX 95 % (92-99); TOTAL HEMOGLOBIN 12.9 g/dL
[2016-07-08 01:13] LABS: FIO2 COOX 80
[2016-07-08 04:16] LABS: CALCIUM 8.8 mg/dL (8.5-10.1); CREATININE 3.7 mg/dL (0.6-1.0); GFR 16.3; MAGNESIUM 2.2 mg/dL (1.8-2.4); POTASSIUM 3.1 mmol/L (3.5-5.1)
--- NOTE | 2016-07-08 04:48 | ACF ---
Admission Forms Criteria RESPIRATORY FAILURE [facility] Clinical Indications for Admission to Inpatient Care (Place 'X' for any and all applicable criteria): Hospital admission is needed for appropriate care of the patient because of acute respiratory failure or insufficiency as indicated by ANY ONE of the following(1)(2)(3)(4)(5)(6)(7)(8): [X]I. Mechanical ventilation needed (acute invasive or noninvasive) [ ]II. Severe ventilation deficit as indicated by ANY ONE of the following (9) [ ]a) Respiratory acidosis (pH less than 7.32 and partial pressure of carbon dioxide greater than 40 mm Hg (5.3 kPa)) [ ]b) Partial pressure of carbon dioxide greater than 44 mm Hg (5.9 kPa ) (new) [ ]c) Airflow measurements less than 25% of predicted (eg, peak expiratory flow rate less than 100 L/minute) [ ]d) Forced vital capacity less than 15 mL/kg of ideal body weight, or 50% decrease in vital capacity from baseline [ ]III. Noncardiac pulmonary edema not resolving with rapid emergency treatment (8) [ ]IV. Severe respiratory distress as indicated by ANY ONE of the following: [ ]a) Severe tachypnea (respiratory rate greater than 30, greater than 45 for 6-month-old, greater than 60 for ) [ ]b) Severe hypoxemia (partial pressure of oxygen less than 50 mm Hg ( 6.7 kPa) on greater than 50% oxygen or partial pressure of oxygen to FIO2 ratio less than 200) [ ]c) Mental status deterioration from respiratory disease [ ]V. Airway obstruction or inadequate protection [A](10)(11) The original nfon content created by [employer] has been revised. The portions of the content which have been revised are identified through the use of italic text or in bold, and [employer] has neither reviewed nor approved the modified material. All other unmodified content is copyright [employer]fon. Please see references footnoted in the original nfon edition 2016 Admission Criteria Met?: Yes NURY QUAN Jul 08, 2016 04:48
[2016-07-08] MEDS: ACETAMINOPHEN 650 MG/20.3 ML SOLUTION. NG SCH ×2 (06:00)
[2016-07-08 06:08] LABS: HEMATOCRIT 34.5 % (36.0-47.0); HEMOGLOBIN 11.1 g/dL (12.0-15.5); RED BLOOD COUNT 3.68 x10^6/uL (3.50-5.40); RED CELL DISTRIBUTION WIDTH 15.9 % (11.5-14.5); WHITE BLOOD COUNT 10.3 x10^3/uL (4.0-11.0)
[2016-07-08 06:21] LABS: INR 1.1 (0.8-1.1); PROTHROMBIN TIME PATIENT 13.7 SEC (11.7-14.0)
[2016-07-08 06:34] LABS: ALBUMIN 1.4 g/dL (3.4-5.0); DIRECT BILIRUBIN 0.7 mg/dL (0.0-0.2); TOTAL PROTEIN 5.9 g/dL (6.4-8.2)
[2016-07-08] MEDS ORDERED: NOREPINEPHRINE 8 MG in IV NORMAL SALINE 250 ML IV PRN (06:45)
--- NOTE | 2016-07-08 07:05 | EKG ---
[facility] [address] [place] [address] Test Date: 2016-07-07 Test Time: 16:17:21 Pat Name: IVAN BARBER Department: Room: 112 1 Gender: F [employer] Installer: : 1975 Requested By: Bony GORDON Order Number: [id number] Reading MD: Laina Agee Measurements Intervals Exline Rate: 108 P: -67 SC: 152 QRS: 28 QRSD: 108 T: 138 QT: 366 QTc: 495 Interpretive Statements SINUS TACHYCARDIA ST & T ABNORMALITY, CONSIDER HIGH LATERAL ISCHEMIA RI6.01 Unconfirmed report No previous ECG available for comparison Electronically Signed On 07-10-2016 19:52:54 CDT by Laina Agee
--- NOTE | 2016-07-08 07:23 | RAD ---
Portable chest, 07/07/2016: History: Diabetes, altered mental status No previous chest radiographs are available at this time for comparison purposes. An ET tube is in place with its tip located 4-5 cm above the mady. An NG tube extends into the stomach. A right subclavian central venous catheter extends into the mid right atrium. The heart is at the upper limits of normal in size. There is moderate right lung infiltrate obscuring the vascularity of the right. No significant left lung infiltrate is seen. There is no evidence of pleural fluid or pneumothorax. IMPRESSION: 1. An ET tube, NG tube and right subclavian central venous catheter are in place as described above. 2. Moderate right lung infiltrates suggesting pneumonia versus unilateral pulmonary edema.
--- NOTE | 2016-07-08 07:27 | RAD ---
Portable chest, 07/08/2016: History: Postcode evaluation Comparison is made to yesterday's study. The ET tube remains in place in satisfactory position. An NG tube extends into the stomach. The right subclavian central venous catheter extends into the right atrium. The patient is rotated to the left. The heart is mildly enlarged. Diffuse right lung infiltrates appear more dense. There is now mild left perihilar infiltrate obscuring the underlying vascularity. No pleural fluid or pneumothorax is seen. IMPRESSION: 1. Stable tube placements. 2. Worsening extensive right lung infiltrate and developing mild left parahilar infiltrate. Diagnostic considerations include pulmonary edema or aspiration pneumonia.
[2016-07-08] MEDS ORDERED: HEPARIN for IV BOLUS 10,000 UNIT/10 ML VIAL. IV ONE (07:30)
[2016-07-08] MEDS ORDERED: HEPARIN for IV BOLUS 10,000 UNIT/10 ML VIAL. IV PRN (07:30)
[2016-07-08] MEDS ORDERED: HEPARIN 25,000UTS/500ML PREMIX 500 ML IV PRN (07:30)
[2016-07-08] MEDS ORDERED: INSULIN ASPART 300 UNITS/3 ML INSULN.PEN SQ SCH (08:00)
[2016-07-08 08:21] LABS: BASE EXCESS COOX -11 mmol/L (-3-3); CARBON MONOXIDE 0.6 % (0.0-1.9); HCO3 COOX 17 mmol/L (21-28); METHEMOGLOBIN 0.1 % (0.0-1.9); OXYHEMOGLOBIN 76.2 %; PCO2 COOX 47 mmHg (35-46); PO2 COOX 52 mmHg (75-108); SAT O2 COOX 77 % (92-99); TOTAL HEMOGLOBIN 14.4 g/dL
[2016-07-08] MEDS ORDERED: LIDOCAINE 1% / SOD BICARB 8.4% 20 ML VIAL. IJ ONE (08:30)
[2016-07-08] MEDS: FENTANYL STANDARD PCA 30 ML IV PRN (08:32)
[2016-07-08] MEDS: FAMOTIDINE 20 MG/2 ML VIAL IVP SCH (08:41)
[2016-07-08] MEDS: CHLORHEXIDINE 0.12% 15 ML MOUTHWASH. MM SCH (08:42)
[2016-07-08] MEDS ORDERED: EPINEPHRINE 1 MG/10 ML DISP.SYRIN. ONE (08:55)
[2016-07-08] MEDS ORDERED: ASPIRIN 300 MG SUPP.RECT PR SCH (09:00)
[2016-07-08] MEDS ORDERED: EPINEPHRINE VIAL 4 MG in IV NORMAL SALINE 250ML 250 ML IV PRN (09:00)
[2016-07-08 09:02] LABS: FIO2 COOX 100; PH COOX 7.18 (7.35-7.45)
--- NOTE | 2016-07-08 09:05 | PDOC ---
Exam Intelligence Officer Basic Intelligence Officer Basic Connie Automatic Pad Making Machine Operator Automatic Pad Making Machine Operator F [place] Pre-Procedure Diagnosis Pre-Procedure Diagnosis 40 YO female ICU patient s/p cardiac arrest Post-Procedure Diagnosis Post-Procedure Diagnosis Same Procedure Performed Procedure Performed Bedside ICU sono guided 3L temp HDC insertion Type of Anesthesia Type of Anesthesia Local Estimated Blood Loss EBL: Minimal Drain/Tubes Drains/Tubes Rt EJ 13F 3L 20cm Trialysis temp HDC Condition of Patient Condition of Patient Unresponsive on vent. No apparent complication. Disposition Disposition STAT pCXR requested for 3L temp HDC position. Full report to follow. NORTH NEELY MD Jul 08, 2016 09:05
[2016-07-08] MEDS ORDERED: EPINEPHRINE 1 MG/10 ML DISP.SYRIN. IV ONE (09:15)
[2016-07-08] MEDS ORDERED: SODIUM BICARB ADULT 8.4% 50 MEQ/50 ML DISP.SYRIN. IV ONE (09:15)
[2016-07-08] MEDS: SODIUM BICARBONATE VIAL 150 MEQ in IV DEXTROSE 5% 1,000 ML IV SCH ×2 (09:45→10:33)
--- NOTE | 2016-07-08 09:45 | RAD ---
Examination: Single frontal view the chest. History: History of temporary HDC catheter insertion Comparison: Same day exam 7:12 AM Findings: The ET tube, feeding tube, right-sided subclavian line are unchanged. Interval placement of a right sided dialysis catheter which appears to extend across from the right to the left with the tip projecting in the left upper chest wall region probably in the left the region of subclavian vein. No pneumothorax. Extensive infiltrate identified in the right grossly similar to prior exam. Patchy left lung airspace opacities. Impression: 1. Lines and tubes as described. Interval placement of right sided dialysis catheter which appears to extend across the midline from the right to the left, with the tip projecting in the left upper chest wall region probably in the region of left subclavian vein. 2. Extensive right lung infiltrate and the mild left perihilar infiltrate similar to prior exam. Patient nurse was informed at time of dictation.
--- NOTE | 2016-07-08 09:55 | RAD ---
Portable chest, 07/08/2016, 9:28 AM: History: Check catheter placement Comparison is made to the study of earlier the same day at 9:11 AM. The patient is rotated to the left. The right jugular dialysis type catheter has been repositioned and now extends into the superior aspect of the right atrium. The other tubes and catheters are unchanged. The heart is enlarged. Extensive right lung infiltrate and mild left parahilar infiltrate are unchanged. There is no evidence of pneumothorax or definite pleural fluid. IMPRESSION: 1. Satisfactory repositioning of the right jugular dialysis type catheter which now extends into the superior aspect of the right atrium. 2. No other significant change since earlier in the day.
--- NOTE | 2016-07-08 10:01 | PDOC2 ---
ARMIDA LAWS DIRECTOR OF RECRUITING 07/08/16 1000: CARDIAC CONSULT DATE OF CONSULT Date of Consult DATE: 07/08/16 TIME: 09:51 REASON FOR CONSULT Reason for Consult: cardiac arrest REFERRING PHYSICIAN Referring Physician: Dr. Jeff Molina SOURCE Source: Chart review HISTORY OF PRESENT ILLNESS HISTORY OF PRESENT ILLNESS 40 year old female admitted through ER after witnessed cardiac arrest in public setting. Friend was present and patient became acutely unresponsive. Agonal rhythm found by EMS with ACLS initiated. Brief ROSC and then asystole with ACLS resumed. Treated with Epinephrine IV. ER notes also indicate patient with PEA. Oral ET tube placed in ER. Treated with antibiotics and fluids as well. Family denies patient with any recent health issues or complaints. Initial lactic acid was 8.8 with glucose > 600 and Cr of 3.9. Reason for Visit: Cardiac arrest PAST MEDICAL HISTORY Cardiovascular: CHF, HTN Renal/: Chronic renal insuff (with episode of acute failure requiring dialysis in 2016) Endocrine: Diabetes PAST SURGICAL HISTORY Past Surgical History: Other (unknown) FAMILY HISTORY Family History: Family History Unknown SOCIAL HISTORY Social History unknown CURRENT MEDICATIONS CURRENT MEDICATIONS Current Medications Medications (Trade) Dose Ordered Sig/[place] Route PRN Reason Start Time Stop Time Status Last Admin Dose Admin Propofol (Diprivan) 100 ml @ 0 mls/hr CONT PRN IV PER PROTOCOL 07/07/16 17:30 07/08/16 08:32 Chlorhexidine Gluconate (Peridex) 15 ml BID MM 07/07/16 21:00 07/08/16 08:42 Calcium Chloride 1000 mg 1,000 mg 1X ONCE IV 07/07/16 17:30 07/07/16 17:38 DC 07/07/16 17:18 Sodium Chloride 1,000 ml @ 1,000 mls/hr Q1H IV 07/07/16 17:25 07/07/16 23:36 DC 07/07/16 20:04 Fentanyl Citrate 30 ml @ 2.5 mls/hr CONT PRN PRN IV IVF 07/07/16 17:30 07/08/16 08:32 Propofol (Diprivan) 100 ml @ 0 mls/hr CONT PRN IV SEE I/O RECORD 07/07/16 17:30 07/07/16 19:48 Famotidine (Pepcid) 20 mg BID IVP 07/07/16 21:00 07/08/16 08:41 Aspirin (Aspirin) 300 mg DAILY MO 07/08/16 09:00 07/08/16 08:41 Vancomycin HCl 1 each 1 each PRN DAILY PRN MC SEE COMMENTS 07/07/16 19:00 07/07/16 20:29 Potassium Chloride 50 ml @ 50 mls/hr Q1H IV 07/07/16 19:30 07/07/16 21:29 DC 07/07/16 20:46 Sodium Chloride (Iv Sodium Chloride 0.9% 1000ml Bag) 1,000 ml @ 175 mls/hr 1X ONCE IV 07/07/16 19:30 07/08/16 01:12 DC 07/07/16 20:52 Furosemide 40 mg 40 mg 1X ONCE IVP 07/07/16 19:30 07/07/16 19:31 DC 07/07/16 20:54 Levofloxacin/ Dextrose 150 ml @ 100 mls/hr 1X ONCE IV 07/07/16 19:30 07/07/16 20:59 DC 07/07/16 23:00 Piperacillin Sod/ Tazobactam Sod 3.375 gm/Sodium Chloride 50 ml @ 100 mls/hr 1X ONCE IV 07/07/16 19:30 07/07/16 19:59 DC 07/07/16 19:54 Vancomycin HCl 2 gm/Sodium Chloride 500 ml @ 250 mls/hr 1X ONCE IV 07/07/16 20:30 07/07/16 22:29 DC 07/07/16 20:48 Piperacillin Sod/ Tazobactam Sod/ Sodium Chloride (Zosyn/Iv Sodium Chloride 0.9% 50ml) 50 ml @ 100 mls/hr Q6HRS IV 07/08/16 00:00 07/08/16 06:03 Hydralazine HCl 10 mg 10 mg PRN Q4HRS PRN IVP ELEVATED BP, SEE COMMENTS 07/07/16 20:00 07/07/16 21:48 Insulin Human Regular 150 unit/ Sodium Chloride 151.5 ml @ 0 mls/hr CONT PRN IV SEE I/O RECORD 07/07/16 21:00 07/07/16 21:43 Potassium Chloride 50 ml @ 50 mls/hr Q1H IV 07/07/16 23:00 07/08/16 00:59 DC 07/08/16 00:55 Magnesium Sulfate/ Dextrose 50 ml @ 25 mls/hr 1X ONCE IV 07/07/16 23:45 07/08/16 01:44 DC 07/07/16 23:53 Potassium Chloride (KCl Premix 20meq) 50 ml @ 50 mls/hr Q1H IV 07/08/16 05:00 07/08/16 06:59 DC 07/08/16 06:02 Heparin Sodium (Porcine) 4,000 unit 1X ONCE IV 07/08/16 07:30 07/08/16 07:44 DC 07/08/16 07:35 Heparin Sodium/ Sodium Chloride 60 unit 60 unit 1X ONCE IV 07/08/16 08:30 07/08/16 08:34 DC 07/08/16 09:31 Epinephrine HCl/ Sodium Chloride (Adrenalin/Iv Sodium Chloride 0.9% 250ml) 254 ml @ 3.81 mls/hr CONT PRN IV SEE I/O RECORD 07/08/16 09:00 07/08/16 09:45 Sodium Bicarbonate 50 meq 1X ONCE IV 07/08/16 09:15 07/08/16 09:16 DC 07/08/16 09:15 Epinephrine HCl 1 mg 1 mg 1X ONCE IV 07/08/16 09:15 07/08/16 09:16 DC 07/08/16 09:15 Sodium Bicarbonate/ Dextrose 1,150 ml @ 75 mls/hr [id number] IV 07/08/16 09:30 07/08/16 09:45 ALLERGIES ALLERGIES: Coded Allergies: No Known Drug Allergies (Unverified , 07/07/16) ROS Review of System unobtainable as intubated; family denies recent complaints by patient PHYSICAL EXAM General: No acute distress, Other (sedated) HEENT: Atraumatic Lungs: Other (diminished anteriorly; oral ETT) Heart: Normal S1, Normal S2, No murmurs Abdomen: Soft, Other (truncal obesity) Extremities: No edema Skin: No rashes Neuro: Other (intubated) Psych/Mental Status: Other (unable to assess) MUSCULOSKELETAL: No deformity VITALS VITALS Vital Signs Date Time Temp Pulse Resp B/P Pulse Ox O2 Delivery O2 Flow Rate FiO2 07/08/16 09:07 100 Ventilator 07/08/16 09:00 93.9 89 22 93.9 LABS Lab: Laboratory Tests Test 07/07/16 16:00 07/07/16 16:30 07/07/16 18:11 07/07/16 20:45 White Blood Count 9.9x10^3/uL (4.0-11.0) Red Blood Count 4.20x10^6/uL (3.50-5.40) Hemoglobin 12.7g/dL (12.0-15.5) Hematocrit 42.5% (36.0-47.0) Mean Corpuscular Volume 101fL (79-100) Mean Corpuscular Hemoglobin 30pg (25-35) Mean Corpuscular Hemoglobin Concent 30g/dL (31-37) Red Cell Distribution Width 17.4% (11.5-14.5) Platelet Count 206x10^3/uL (140-400) Neutrophils (%) (Auto) 64% (31-73) Lymphocytes (%) (Auto) 28% (24-48) Monocytes (%) (Auto) 6% (0-9) Eosinophils (%) (Auto) 2% (0-3) Basophils (%) (Auto) 1% (0-3) Neutrophils # (Auto) 6.3x10^3uL (1.8-7.7) Lymphocytes # (Auto) 2.8x10^3/uL (1.0-4.8) Monocytes # (Auto) 0.6x10^3/uL (0.0-1.1) Eosinophils # (Auto) 0.2x10^3/uL (0.0-0.7) Basophils # (Auto) 0.1x10^3/uL (0.0-0.2) Segmented Neutrophils % 51% (35-66) Band Neutrophils % 4% (0-9) Lymphocytes % 33% (24-48) Monocytes % 7% (0-10) Eosinophils % 2% (0-5) Metamyelocytes % 2% (0-0) Myelocytes % 1% (0-0) Platelet Estimate Adequate (ADEQUATE) Polychromasia Slight Anisocytosis Slight Prothrombin Time 14.5SEC (11.7-14.0) Prothromb Time International Ratio 1.2 (0.8-1.1) Activated Partial Thromboplast Time 43SEC (24-38) Sodium Level 138mmol/L (136-145) Potassium Level 2.8mmol/L (3.5-5.1) Chloride Level 101mmol/L (98-107) Carbon Dioxide Level 19mmol/L (21-32) Anion Gap 18 (6-14) Blood Urea Nitrogen 35mg/dL (7-20) Creatinine 3.9mg/dL (0.6-1.0) Estimated GFR (Cockcroft-Gault) 15.4 Glucose Level 612mg/dL (70-99) Glucose (Fingerstick) 401mg/dL (70-99) 362mg/dL (70-99) Lactic Acid Level 8.8mmol/L (0.4-2.0) Calcium Level 9.1mg/dL (8.5-10.1) Magnesium Level 2.1mg/dL (1.8-2.4) Total Bilirubin 1.0mg/dL (0.2-1.0) Direct Bilirubin 0.6mg/dL (0.0-0.2) Aspartate Amino Transf (AST/SGOT) 66U/L (15-37) Alanine Aminotransferase (ALT/SGPT) 53U/L (14-59) Alkaline Phosphatase 537U/L (46-116) Creatine Kinase 323U/L (26-192) Creatine Kinase MB (Mass) 5.8ng/mL (0.0-3.6) Creatine Kinase MB Relative Index 1.8% (0-4) Troponin I Quantitative 0.194ng/mL (0.000-0.055) UF-Rla-V-Type Natriuretic Peptide 75065wq/mL (0-124) Total Protein 6.5g/dL (6.4-8.2) Albumin 1.7g/dL (3.4-5.0) Amylase Level 30U/L (25-115) O2 Saturation 99% (92-99) Arterial Blood pH 7.15 (7.35-7.45) Arterial Blood pCO2 at Patient Temp 33mmHg (35-46) Arterial Blood pO2 at Patient Temp 305mmHg (75-108) Arterial Blood HCO3 11mmol/L (21-28) Arterial Blood Base Excess -17mmol/L (-3-3) FiO2 100.0 Urine Collection Type U cath Urine Color Yellow Urine Clarity Clear Urine pH 7.0 Urine Specific [place] 1.020 Urine Protein >=300mg/dL (NEG-TRACE) Urine Glucose (UA) >=1000mg/dL (NEG) Urine Ketones (Stick) Negativemg/dL (NEG) Urine Blood Moderate (NEG) Urine Nitrite Negative (NEG) Urine Bilirubin Small (NEG) Urine Urobilinogen Dipstick 1.0mg/dL (0.2 mg/dL) Urine Leukocyte Esterase Negative (NEG) Urine RBC 11-20/HPF (0-2) Urine WBC 1-4/HPF (0-4) Urine Squamous Epithelial Cells Few/LPF Urine Amorphous Sediment Present/HPF Urine Bacteria Moderate/HPF (0-FEW) Urine Mucus Slight/LPF Urine Opiates Screen Neg (NEG) Urine Methadone Screen Neg (NEG) Urine Barbiturates Neg (NEG) Urine Phencyclidine Screen Neg (NEG) Urine Amphetamine/Methamphetamine Neg (NEG) Urine Benzodiazepines Screen Neg (NEG) Urine Cocaine Screen Neg (NEG) Urine Cannabinoids Screen Neg (NEG) Urine Ethyl Alcohol Neg (NEG) Test 07/07/16 20:50 07/07/16 22:36 07/07/16 23:38 07/08/16 00:03 Sodium Level 142mmol/L (136-145) 145mmol/L (136-145) Potassium Level 3.2mmol/L (3.5-5.1) 3.0mmol/L (3.5-5.1) Chloride Level 106mmol/L (98-107) 108mmol/L (98-107) Carbon Dioxide Level 24mmol/L (21-32) 24mmol/L (21-32) Anion Gap 12 (6-14) 13 (6-14) Blood Urea Nitrogen 37mg/dL (7-20) 36mg/dL (7-20) Creatinine 4.0mg/dL (0.6-1.0) 3.9mg/dL (0.6-1.0) Estimated GFR (Cockcroft-Gault) 14.9 15.4 Glucose Level 403mg/dL (70-99) 322mg/dL (70-99) Calcium Level 8.8mg/dL (8.5-10.1) 8.9mg/dL (8.5-10.1) Phosphorus Level 6.6mg/dL (2.6-4.7) 5.7mg/dL (2.6-4.7) Magnesium Level 1.7mg/dL (1.8-2.4) 1.5mg/dL (1.8-2.4) Ammonia 15mcmol/L (11-34) Glucose (Fingerstick) 346mg/dL (70-99) 327mg/dL (70-99) White Blood Count 11.0x10^3/uL (4.0-11.0) Red Blood Count 3.88x10^6/uL (3.50-5.40) Hemoglobin 11.6g/dL (12.0-15.5) Hematocrit 36.8% (36.0-47.0) Mean Corpuscular Volume 95fL (79-100) Mean Corpuscular Hemoglobin 30pg (25-35) Mean Corpuscular Hemoglobin Concent 32g/dL (31-37) Red Cell Distribution Width 16.2% (11.5-14.5) Platelet Count 171x10^3/uL (140-400) Prothrombin Time 13.4SEC (11.7-14.0) Prothromb Time International Ratio 1.1 (0.8-1.1) Activated Partial Thromboplast Time 30SEC (24-38) Lactic Acid Level 1.7mmol/L (0.4-2.0) Troponin I Quantitative 1.497ng/mL (0.000-0.055) Test 07/08/16 00:40 07/08/16 01:00 07/08/16 01:43 07/08/16 02:46 Glucose (Fingerstick) 248mg/dL (70-99) 228mg/dL (70-99) 219mg/dL (70-99) O2 Saturation 95% (92-99) Arterial Blood pH 7.31 (7.35-7.45) Arterial Blood pH (Temp corrected) 7.38 Arterial Blood pCO2 at Patient Temp 38mmHg (35-46) Arterial Blood pCO2 (Temp correct) 31mmHg Arterial Blood pO2 at Patient Temp 83mmHg (75-108) Arterial Blood pO2 (Temp corrected) 61mmHg Arterial Blood HCO3 19mmol/L (21-28) Arterial Blood Base Excess -7mmol/L (-3-3) Oxyhemoglobin 94.7% Methemoglobin 0.1% (0.0-1.9) Carbon Monoxide, Quantitative 0.5% (0.0-1.9) FiO2 80 Test 07/08/16 03:45 07/08/16 03:48 07/08/16 04:52 07/08/16 05:45 Sodium Level 144mmol/L (136-145) Potassium Level 3.1mmol/L (3.5-5.1) Chloride Level 108mmol/L (98-107) Carbon Dioxide Level 21mmol/L (21-32) Anion Gap 15 (6-14) Blood Urea Nitrogen 35mg/dL (7-20) Creatinine 3.7mg/dL (0.6-1.0) Estimated GFR (Cockcroft-Gault) 16.3 Glucose Level 206mg/dL (70-99) Calcium Level 8.8mg/dL (8.5-10.1) Phosphorus Level 5.0mg/dL (2.6-4.7) Magnesium Level 2.2mg/dL (1.8-2.4) Glucose (Fingerstick) 174mg/dL (70-99) 158mg/dL (70-99) White Blood Count 10.3x10^3/uL (4.0-11.0) Red Blood Count 3.68x10^6/uL (3.50-5.40) Hemoglobin 11.1g/dL (12.0-15.5) Hematocrit 34.5% (36.0-47.0) Mean Corpuscular Volume 94fL (79-100) Mean Corpuscular Hemoglobin 30pg (25-35) Mean Corpuscular Hemoglobin Concent 32g/dL (31-37) Red Cell Distribution Width 15.9% (11.5-14.5) Platelet Count 167x10^3/uL (140-400) Prothrombin Time 13.7SEC (11.7-14.0) Prothromb Time International Ratio 1.1 (0.8-1.1) Activated Partial Thromboplast Time 31SEC (24-38) Lactic Acid Level 2.2mmol/L (0.4-2.0) Ionized Calcium 1.17mmol/L (1.13-1.32) Total Bilirubin 1.0mg/dL (0.2-1.0) Direct Bilirubin 0.7mg/dL (0.0-0.2) Aspartate Amino Transf (AST/SGOT) 37U/L (15-37) Alanine Aminotransferase (ALT/SGPT) 46U/L (14-59) Alkaline Phosphatase 438U/L (46-116) Troponin I Quantitative 2.996ng/mL (0.000-0.055) Total Protein 5.9g/dL (6.4-8.2) Albumin 1.4g/dL (3.4-5.0) Lipase 693U/L (73-393) Test 07/08/16 05:51 07/08/16 06:58 07/08/16 08:06 07/08/16 08:30 Glucose (Fingerstick) 135mg/dL (70-99) 180mg/dL (70-99) 175mg/dL (70-99) O2 Saturation 77% (92-99) Arterial Blood pH 7.18 (7.35-7.45) Arterial Blood pCO2 at Patient Temp 47mmHg (35-46) Arterial Blood pO2 at Patient Temp 52mmHg (75-108) Arterial Blood HCO3 17mmol/L (21-28) Arterial Blood Base Excess -11mmol/L (-3-3) Oxyhemoglobin 76.2% Methemoglobin 0.1% (0.0-1.9) Carbon Monoxide, Quantitative 0.6% (0.0-1.9) FiO2 100 Test 07/08/16 09:16 Glucose (Fingerstick) 200mg/dL (70-99) IMAGES IMAGES CXR: Comparison is made to the study of earlier the same day at 9:11 AM. The patient is rotated to the left. The right jugular dialysis type catheter has been repositioned and now extends into the superior aspect of the right atrium. The other tubes and catheters are unchanged. The heart is enlarged. Extensive right lung infiltrate and mild left parahilar infiltrate are unchanged. There is no evidence of pneumothorax or definite pleural fluid. IMPRESSION: 1. Satisfactory repositioning of the right jugular dialysis type catheter which now extends into the superior aspect of the right atrium. 2. No other significant change since earlier in the day. EKG EKG unable to review ECHOCARDIOGRAM ECHOCARDIOGRAM preserved LV function on preliminary review ASSESSMENT/PLAN ASSESSMENT/PLAN 1. cardiac arrest agonal, asystole and ? PEA elevated troponin consistent with this UDS clean has been treated with ASA and is being cooled heparin gtt started for ? of pulmonary embolus hypokalemia with replacement therapy preserved LV function on echo 2. acute respiratory failure intubated with mech ventilation 3. ? DKA insulin gtt infusing defer to primary 4. acute renal failure Poor prognosis Will follow peripherally Problems: SHELLIE HINSON MD 07/08/16 2130: CARDIAC CONSULT ALLERGIES ALLERGIES: Coded Allergies: No Known Drug Allergies (Unverified , 07/07/16) ASSESSMENT/PLAN ASSESSMENT/PLAN Pt. seen and examined this a.m. 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 40 y.o woman with multiple comorbidities. presented with PEA arrest Normal cardiac function by echo, electrolyte abn No clear cardiac causes. Poor prognosis. Problems: ARMIDA LAWS APRN Jul 08, 2016 10:00 SHELLIE HINSON MD Jul 08, 2016 21:30
[2016-07-08] MEDS: INSULIN REGULAR VIAL 150 UNIT in 0.9 % SODIUM CHLORIDE 150ML 150 ML IV PRN (10:10)
[2016-07-08 10:34] LABS: TOTAL BILIRUBIN 1.2 mg/dL (0.2-1.0); TOTAL PROTEIN 5.7 g/dL (6.4-8.2)
[2016-07-08 10:39] LABS: ALBUMIN 1.4 g/dL (3.4-5.0); ALBUMIN/GLOBULIN RATIO 0.3 (1.0-1.7); CREATININE 4.1 mg/dL (0.6-1.0); GFR 14.5
[2016-07-08] MEDS ORDERED: CALCIUM GLUCONATE 1,000 MG/10 ML VIAL IVP STA (10:40)
[2016-07-08] MEDS ORDERED: MORPHINE SULFATE 10 MG/ML VIAL. ONE ×2 (11:00→11:02)
--- NOTE | 2016-07-08 11:02 | PDOC ---
PULMONARY PROGRESS NOTES Vitals Vital Signs Date Time Temp Pulse Resp B/P Pulse Ox O2 Delivery O2 Flow Rate FiO2 07/08/16 09:56 93.9 65 22 123/81 100 Ventilator 93.9 Labs Laboratory Tests Test 07/07/16 16:00 07/07/16 16:30 07/07/16 18:11 07/07/16 20:45 White Blood Count 9.9x10^3/uL (4.0-11.0) Red Blood Count 4.20x10^6/uL (3.50-5.40) Hemoglobin 12.7g/dL (12.0-15.5) Hematocrit 42.5% (36.0-47.0) Mean Corpuscular Volume 101fL (79-100) Mean Corpuscular Hemoglobin 30pg (25-35) Mean Corpuscular Hemoglobin Concent 30g/dL (31-37) Red Cell Distribution Width 17.4% (11.5-14.5) Platelet Count 206x10^3/uL (140-400) Neutrophils (%) (Auto) 64% (31-73) Lymphocytes (%) (Auto) 28% (24-48) Monocytes (%) (Auto) 6% (0-9) Eosinophils (%) (Auto) 2% (0-3) Basophils (%) (Auto) 1% (0-3) Neutrophils # (Auto) 6.3x10^3uL (1.8-7.7) Lymphocytes # (Auto) 2.8x10^3/uL (1.0-4.8) Monocytes # (Auto) 0.6x10^3/uL (0.0-1.1) Eosinophils # (Auto) 0.2x10^3/uL (0.0-0.7) Basophils # (Auto) 0.1x10^3/uL (0.0-0.2) Segmented Neutrophils % 51% (35-66) Band Neutrophils % 4% (0-9) Lymphocytes % 33% (24-48) Monocytes % 7% (0-10) Eosinophils % 2% (0-5) Metamyelocytes % 2% (0-0) Myelocytes % 1% (0-0) Platelet Estimate Adequate (ADEQUATE) Polychromasia Slight Anisocytosis Slight Prothrombin Time 14.5SEC (11.7-14.0) Prothromb Time International Ratio 1.2 (0.8-1.1) Activated Partial Thromboplast Time 43SEC (24-38) Sodium Level 138mmol/L (136-145) Potassium Level 2.8mmol/L (3.5-5.1) Chloride Level 101mmol/L (98-107) Carbon Dioxide Level 19mmol/L (21-32) Anion Gap 18 (6-14) Blood Urea Nitrogen 35mg/dL (7-20) Creatinine 3.9mg/dL (0.6-1.0) Estimated GFR (Cockcroft-Gault) 15.4 Glucose Level 612mg/dL (70-99) Glucose (Fingerstick) 401mg/dL (70-99) 362mg/dL (70-99) Lactic Acid Level 8.8mmol/L (0.4-2.0) Calcium Level 9.1mg/dL (8.5-10.1) Magnesium Level 2.1mg/dL (1.8-2.4) Total Bilirubin 1.0mg/dL (0.2-1.0) Direct Bilirubin 0.6mg/dL (0.0-0.2) Aspartate Amino Transf (AST/SGOT) 66U/L (15-37) Alanine Aminotransferase (ALT/SGPT) 53U/L (14-59) Alkaline Phosphatase 537U/L (46-116) Creatine Kinase 323U/L (26-192) Creatine Kinase MB (Mass) 5.8ng/mL (0.0-3.6) Creatine Kinase MB Relative Index 1.8% (0-4) Troponin I Quantitative 0.194ng/mL (0.000-0.055) AL-Vkv-O-Type Natriuretic Peptide 08717ug/mL (0-124) Total Protein 6.5g/dL (6.4-8.2) Albumin 1.7g/dL (3.4-5.0) Amylase Level 30U/L (25-115) O2 Saturation 99% (92-99) Arterial Blood pH 7.15 (7.35-7.45) Arterial Blood pCO2 at Patient Temp 33mmHg (35-46) Arterial Blood pO2 at Patient Temp 305mmHg (75-108) Arterial Blood HCO3 11mmol/L (21-28) Arterial Blood Base Excess -17mmol/L (-3-3) FiO2 100.0 Urine Collection Type U cath Urine Color Yellow Urine Clarity Clear Urine pH 7.0 Urine Specific [place] 1.020 Urine Protein >=300mg/dL (NEG-TRACE) Urine Glucose (UA) >=1000mg/dL (NEG) Urine Ketones (Stick) Negativemg/dL (NEG) Urine Blood Moderate (NEG) Urine Nitrite Negative (NEG) Urine Bilirubin Small (NEG) Urine Urobilinogen Dipstick 1.0mg/dL (0.2 mg/dL) Urine Leukocyte Esterase Negative (NEG) Urine RBC 11-20/HPF (0-2) Urine WBC 1-4/HPF (0-4) Urine Squamous Epithelial Cells Few/LPF Urine Amorphous Sediment Present/HPF Urine Bacteria Moderate/HPF (0-FEW) Urine Mucus Slight/LPF Urine Opiates Screen Neg (NEG) Urine Methadone Screen Neg (NEG) Urine Barbiturates Neg (NEG) Urine Phencyclidine Screen Neg (NEG) Urine Amphetamine/Methamphetamine Neg (NEG) Urine Benzodiazepines Screen Neg (NEG) Urine Cocaine Screen Neg (NEG) Urine Cannabinoids Screen Neg (NEG) Urine Ethyl Alcohol Neg (NEG) Test 07/07/16 20:50 07/07/16 22:36 07/07/16 23:38 07/08/16 00:03 Sodium Level 142mmol/L (136-145) 145mmol/L (136-145) Potassium Level 3.2mmol/L (3.5-5.1) 3.0mmol/L (3.5-5.1) Chloride Level 106mmol/L (98-107) 108mmol/L (98-107) Carbon Dioxide Level 24mmol/L (21-32) 24mmol/L (21-32) Anion Gap 12 (6-14) 13 (6-14) Blood Urea Nitrogen 37mg/dL (7-20) 36mg/dL (7-20) Creatinine 4.0mg/dL (0.6-1.0) 3.9mg/dL (0.6-1.0) Estimated GFR (Cockcroft-Gault) 14.9 15.4 Glucose Level 403mg/dL (70-99) 322mg/dL (70-99) Calcium Level 8.8mg/dL (8.5-10.1) 8.9mg/dL (8.5-10.1) Phosphorus Level 6.6mg/dL (2.6-4.7) 5.7mg/dL (2.6-4.7) Magnesium Level 1.7mg/dL (1.8-2.4) 1.5mg/dL (1.8-2.4) Ammonia 15mcmol/L (11-34) Glucose (Fingerstick) 346mg/dL (70-99) 327mg/dL (70-99) White Blood Count 11.0x10^3/uL (4.0-11.0) Red Blood Count 3.88x10^6/uL (3.50-5.40) Hemoglobin 11.6g/dL (12.0-15.5) Hematocrit 36.8% (36.0-47.0) Mean Corpuscular Volume 95fL (79-100) Mean Corpuscular Hemoglobin 30pg (25-35) Mean Corpuscular Hemoglobin Concent 32g/dL (31-37) Red Cell Distribution Width 16.2% (11.5-14.5) Platelet Count 171x10^3/uL (140-400) Prothrombin Time 13.4SEC (11.7-14.0) Prothromb Time International Ratio 1.1 (0.8-1.1) Activated Partial Thromboplast Time 30SEC (24-38) Lactic Acid Level 1.7mmol/L (0.4-2.0) Troponin I Quantitative 1.497ng/mL (0.000-0.055) Test 07/08/16 00:40 07/08/16 01:00 07/08/16 01:43 07/08/16 02:46 Glucose (Fingerstick) 248mg/dL (70-99) 228mg/dL (70-99) 219mg/dL (70-99) O2 Saturation 95% (92-99) Arterial Blood pH 7.31 (7.35-7.45) Arterial Blood pH (Temp corrected) 7.38 Arterial Blood pCO2 at Patient Temp 38mmHg (35-46) Arterial Blood pCO2 (Temp correct) 31mmHg Arterial Blood pO2 at Patient Temp 83mmHg (75-108) Arterial Blood pO2 (Temp corrected) 61mmHg Arterial Blood HCO3 19mmol/L (21-28) Arterial Blood Base Excess -7mmol/L (-3-3) Oxyhemoglobin 94.7% Methemoglobin 0.1% (0.0-1.9) Carbon Monoxide, Quantitative 0.5% (0.0-1.9) FiO2 80 Test 07/08/16 03:45 07/08/16 03:48 07/08/16 04:52 07/08/16 05:45 Sodium Level 144mmol/L (136-145) Potassium Level 3.1mmol/L (3.5-5.1) Chloride Level 108mmol/L (98-107) Carbon Dioxide Level 21mmol/L (21-32) Anion Gap 15 (6-14) Blood Urea Nitrogen 35mg/dL (7-20) Creatinine 3.7mg/dL (0.6-1.0) Estimated GFR (Cockcroft-Gault) 16.3 Glucose Level 206mg/dL (70-99) Calcium Level 8.8mg/dL (8.5-10.1) Phosphorus Level 5.0mg/dL (2.6-4.7) Magnesium Level 2.2mg/dL (1.8-2.4) Glucose (Fingerstick) 174mg/dL (70-99) 158mg/dL (70-99) White Blood Count 10.3x10^3/uL (4.0-11.0) Red Blood Count 3.68x10^6/uL (3.50-5.40) Hemoglobin 11.1g/dL (12.0-15.5) Hematocrit 34.5% (36.0-47.0) Mean Corpuscular Volume 94fL (79-100) Mean Corpuscular Hemoglobin 30pg (25-35) Mean Corpuscular Hemoglobin Concent 32g/dL (31-37) Red Cell Distribution Width 15.9% (11.5-14.5) Platelet Count 167x10^3/uL (140-400) Prothrombin Time 13.7SEC (11.7-14.0) Prothromb Time International Ratio 1.1 (0.8-1.1) Activated Partial Thromboplast Time 31SEC (24-38) Lactic Acid Level 2.2mmol/L (0.4-2.0) Ionized Calcium 1.17mmol/L (1.13-1.32) Total Bilirubin 1.0mg/dL (0.2-1.0) Direct Bilirubin 0.7mg/dL (0.0-0.2) Aspartate Amino Transf (AST/SGOT) 37U/L (15-37) Alanine Aminotransferase (ALT/SGPT) 46U/L (14-59) Alkaline Phosphatase 438U/L (46-116) Troponin I Quantitative 2.996ng/mL (0.000-0.055) Total Protein 5.9g/dL (6.4-8.2) Albumin 1.4g/dL (3.4-5.0) Lipase 693U/L (73-393) Test 07/08/16 05:51 07/08/16 06:58 07/08/16 08:06 07/08/16 08:30 Glucose (Fingerstick) 135mg/dL (70-99) 180mg/dL (70-99) 175mg/dL (70-99) O2 Saturation 77% (92-99) Arterial Blood pH 7.18 (7.35-7.45) Arterial Blood pCO2 at Patient Temp 47mmHg (35-46) Arterial Blood pO2 at Patient Temp 52mmHg (75-108) Arterial Blood HCO3 17mmol/L (21-28) Arterial Blood Base Excess -11mmol/L (-3-3) Oxyhemoglobin 76.2% Methemoglobin 0.1% (0.0-1.9) Carbon Monoxide, Quantitative 0.6% (0.0-1.9) FiO2 100 Test 07/08/16 09:16 07/08/16 10:07 Glucose (Fingerstick) 200mg/dL (70-99) 233mg/dL (70-99) Laboratory Tests Test 07/07/16 16:00 07/07/16 16:30 07/07/16 18:11 07/07/16 20:45 White Blood Count 9.9x10^3/uL (4.0-11.0) Red Blood Count 4.20x10^6/uL (3.50-5.40) Hemoglobin 12.7g/dL (12.0-15.5) Hematocrit 42.5% (36.0-47.0) Mean Corpuscular Volume 101fL (79-100) Mean Corpuscular Hemoglobin 30pg (25-35) Mean Corpuscular Hemoglobin Concent 30g/dL (31-37) Red Cell Distribution Width 17.4% (11.5-14.5) Platelet Count 206x10^3/uL (140-400) Neutrophils (%) (Auto) 64% (31-73) Lymphocytes (%) (Auto) 28% (24-48) Monocytes (%) (Auto) 6% (0-9) Eosinophils (%) (Auto) 2% (0-3) Basophils (%) (Auto) 1% (0-3) Neutrophils # (Auto) 6.3x10^3uL (1.8-7.7) Lymphocytes # (Auto) 2.8x10^3/uL (1.0-4.8) Monocytes # (Auto) 0.6x10^3/uL (0.0-1.1) Eosinophils # (Auto) 0.2x10^3/uL (0.0-0.7) Basophils # (Auto) 0.1x10^3/uL (0.0-0.2) Segmented Neutrophils % 51% (35-66) Band Neutrophils % 4% (0-9) Lymphocytes % 33% (24-48) Monocytes % 7% (0-10) Eosinophils % 2% (0-5) Metamyelocytes % 2% (0-0) Myelocytes % 1% (0-0) Platelet Estimate Adequate (ADEQUATE) Polychromasia Slight Anisocytosis Slight Prothrombin Time 14.5SEC (11.7-14.0) Prothromb Time International Ratio 1.2 (0.8-1.1) Activated Partial Thromboplast Time 43SEC (24-38) Sodium Level 138mmol/L (136-145) Potassium Level 2.8mmol/L (3.5-5.1) Chloride Level 101mmol/L (98-107) Carbon Dioxide Level 19mmol/L (21-32) Anion Gap 18 (6-14) Blood Urea Nitrogen 35mg/dL (7-20) Creatinine 3.9mg/dL (0.6-1.0) Estimated GFR (Cockcroft-Gault) 15.4 Glucose Level 612mg/dL (70-99) Glucose (Fingerstick) 401mg/dL (70-99) 362mg/dL (70-99) Lactic Acid Level 8.8mmol/L (0.4-2.0) Calcium Level 9.1mg/dL (8.5-10.1) Magnesium Level 2.1mg/dL (1.8-2.4) Total Bilirubin 1.0mg/dL (0.2-1.0) Direct Bilirubin 0.6mg/dL (0.0-0.2) Aspartate Amino Transf (AST/SGOT) 66U/L (15-37) Alanine Aminotransferase (ALT/SGPT) 53U/L (14-59) Alkaline Phosphatase 537U/L (46-116) Creatine Kinase 323U/L (26-192) Creatine Kinase MB (Mass) 5.8ng/mL (0.0-3.6) Creatine Kinase MB Relative Index 1.8% (0-4) Troponin I Quantitative 0.194ng/mL (0.000-0.055) BD-Hjr-I-Type Natriuretic Peptide 16065si/mL (0-124) Total Protein 6.5g/dL (6.4-8.2) Albumin 1.7g/dL (3.4-5.0) Amylase Level 30U/L (25-115) O2 Saturation 99% (92-99) Arterial Blood pH 7.15 (7.35-7.45) Arterial Blood pCO2 at Patient Temp 33mmHg (35-46) Arterial Blood pO2 at Patient Temp 305mmHg (75-108) Arterial Blood HCO3 11mmol/L (21-28) Arterial Blood Base Excess -17mmol/L (-3-3) FiO2 100.0 Urine Collection Type U cath Urine Color Yellow Urine Clarity Clear Urine pH 7.0 Urine Specific [place] 1.020 Urine Protein >=300mg/dL (NEG-TRACE) Urine Glucose (UA) >=1000mg/dL (NEG) Urine Ketones (Stick) Negativemg/dL (NEG) Urine Blood Moderate (NEG) Urine Nitrite Negative (NEG) Urine Bilirubin Small (NEG) Urine Urobilinogen Dipstick 1.0mg/dL (0.2 mg/dL) Urine Leukocyte Esterase Negative (NEG) Urine RBC 11-20/HPF (0-2) Urine WBC 1-4/HPF (0-4) Urine Squamous Epithelial Cells Few/LPF Urine Amorphous Sediment Present/HPF Urine Bacteria Moderate/HPF (0-FEW) Urine Mucus Slight/LPF Urine Opiates Screen Neg (NEG) Urine Methadone Screen Neg (NEG) Urine Barbiturates Neg (NEG) Urine Phencyclidine Screen Neg (NEG) Urine Amphetamine/Methamphetamine Neg (NEG) Urine Benzodiazepines Screen Neg (NEG) Urine Cocaine Screen Neg (NEG) Urine Cannabinoids Screen Neg (NEG) Urine Ethyl Alcohol Neg (NEG) Test 07/07/16 20:50 07/07/16 22:36 07/07/16 23:38 07/08/16 00:03 Sodium Level 142mmol/L (136-145) 145mmol/L (136-145) Potassium Level 3.2mmol/L (3.5-5.1) 3.0mmol/L (3.5-5.1) Chloride Level 106mmol/L (98-107) 108mmol/L (98-107) Carbon Dioxide Level 24mmol/L (21-32) 24mmol/L (21-32) Anion Gap 12 (6-14) 13 (6-14) Blood Urea Nitrogen 37mg/dL (7-20) 36mg/dL (7-20) Creatinine 4.0mg/dL (0.6-1.0) 3.9mg/dL (0.6-1.0) Estimated GFR (Cockcroft-Gault) 14.9 15.4 Glucose Level 403mg/dL (70-99) 322mg/dL (70-99) Calcium Level 8.8mg/dL (8.5-10.1) 8.9mg/dL (8.5-10.1) Phosphorus Level 6.6mg/dL (2.6-4.7) 5.7mg/dL (2.6-4.7) Magnesium Level 1.7mg/dL (1.8-2.4) 1.5mg/dL (1.8-2.4) Ammonia 15mcmol/L (11-34) Glucose (Fingerstick) 346mg/dL (70-99) 327mg/dL (70-99) White Blood Count 11.0x10^3/uL (4.0-11.0) Red Blood Count 3.88x10^6/uL (3.50-5.40) Hemoglobin 11.6g/dL (12.0-15.5) Hematocrit 36.8% (36.0-47.0) Mean Corpuscular Volume 95fL (79-100) Mean Corpuscular Hemoglobin 30pg (25-35) Mean Corpuscular Hemoglobin Concent 32g/dL (31-37) Red Cell Distribution Width 16.2% (11.5-14.5) Platelet Count 171x10^3/uL (140-400) Prothrombin Time 13.4SEC (11.7-14.0) Prothromb Time International Ratio 1.1 (0.8-1.1) Activated Partial Thromboplast Time 30SEC (24-38) Lactic Acid Level 1.7mmol/L (0.4-2.0) Troponin I Quantitative 1.497ng/mL (0.000-0.055) Test 07/08/16 00:40 07/08/16 01:00 07/08/16 01:43 07/08/16 02:46 Glucose (Fingerstick) 248mg/dL (70-99) 228mg/dL (70-99) 219mg/dL (70-99) O2 Saturation 95% (92-99) Arterial Blood pH 7.31 (7.35-7.45) Arterial Blood pH (Temp corrected) 7.38 Arterial Blood pCO2 at Patient Temp 38mmHg (35-46) Arterial Blood pCO2 (Temp correct) 31mmHg Arterial Blood pO2 at Patient Temp 83mmHg (75-108) Arterial Blood pO2 (Temp corrected) 61mmHg Arterial Blood HCO3 19mmol/L (21-28) Arterial Blood Base Excess -7mmol/L (-3-3) Oxyhemoglobin 94.7% Methemoglobin 0.1% (0.0-1.9) Carbon Monoxide, Quantitative 0.5% (0.0-1.9) FiO2 80 Test 07/08/16 03:45 07/08/16 03:48 07/08/16 04:52 07/08/16 05:45 Sodium Level 144mmol/L (136-145) Potassium Level 3.1mmol/L (3.5-5.1) Chloride Level 108mmol/L (98-107) Carbon Dioxide Level 21mmol/L (21-32) Anion Gap 15 (6-14) Blood Urea Nitrogen 35mg/dL (7-20) Creatinine 3.7mg/dL (0.6-1.0) Estimated GFR (Cockcroft-Gault) 16.3 Glucose Level 206mg/dL (70-99) Calcium Level 8.8mg/dL (8.5-10.1) Phosphorus Level 5.0mg/dL (2.6-4.7) Magnesium Level 2.2mg/dL (1.8-2.4) Glucose (Fingerstick) 174mg/dL (70-99) 158mg/dL (70-99) White Blood Count 10.3x10^3/uL (4.0-11.0) Red Blood Count 3.68x10^6/uL (3.50-5.40) Hemoglobin 11.1g/dL (12.0-15.5) Hematocrit 34.5% (36.0-47.0) Mean Corpuscular Volume 94fL (79-100) Mean Corpuscular Hemoglobin 30pg (25-35) Mean Corpuscular Hemoglobin Concent 32g/dL (31-37) Red Cell Distribution Width 15.9% (11.5-14.5) Platelet Count 167x10^3/uL (140-400) Prothrombin Time 13.7SEC (11.7-14.0) Prothromb Time International Ratio 1.1 (0.8-1.1) Activated Partial Thromboplast Time 31SEC (24-38) Lactic Acid Level 2.2mmol/L (0.4-2.0) Ionized Calcium 1.17mmol/L (1.13-1.32) Total Bilirubin 1.0mg/dL (0.2-1.0) Direct Bilirubin 0.7mg/dL (0.0-0.2) Aspartate Amino Transf (AST/SGOT) 37U/L (15-37) Alanine Aminotransferase (ALT/SGPT) 46U/L (14-59) Alkaline Phosphatase 438U/L (46-116) Troponin I Quantitative 2.996ng/mL (0.000-0.055) Total Protein 5.9g/dL (6.4-8.2) Albumin 1.4g/dL (3.4-5.0) Lipase 693U/L (73-393) Test 07/08/16 05:51 07/08/16 06:58 07/08/16 08:06 07/08/16 08:30 Glucose (Fingerstick) 135mg/dL (70-99) 180mg/dL (70-99) 175mg/dL (70-99) O2 Saturation 77% (92-99) Arterial Blood pH 7.18 (7.35-7.45) Arterial Blood pCO2 at Patient Temp 47mmHg (35-46) Arterial Blood pO2 at Patient Temp 52mmHg (75-108) Arterial Blood HCO3 17mmol/L (21-28) Arterial Blood Base Excess -11mmol/L (-3-3) Oxyhemoglobin 76.2% Methemoglobin 0.1% (0.0-1.9) Carbon Monoxide, Quantitative 0.6% (0.0-1.9) FiO2 100 Test 07/08/16 09:16 07/08/16 10:07 Glucose (Fingerstick) 200mg/dL (70-99) 233mg/dL (70-99) Impression . REVIEWED THE DATA CXR AND ECHO REPORT PT NOT SEEN CODED ON SEVERAL OCCASION FAMILY DECIDED TO STOP ALL CARE SPOKE WITH CHARLENE STODDARD MD Jul 08, 2016 11:02
[2016-07-08 11:05] LABS: CALCIUM 8.3 mg/dL (8.5-10.1)
[2016-07-08 11:07] LABS: POTASSIUM 2.5 mmol/L (3.5-5.1)
--- NOTE | 2016-07-08 11:32 | PDOC ---
PROGRESS NOTES Chief Complaint Chief Complaint Vitals Vitals Vital Signs Date Time Temp Pulse Resp B/P Pulse Ox O2 Delivery O2 Flow Rate FiO2 07/08/16 11:00 93.1 45 26 71/42 70 Ventilator 93.1 JAMMIE HOPKINS MD Jul 08, 2016 11:31
--- NOTE | 2016-07-08 11:35 | PDOC2 ---
CONSULT Date of Consult Date of Consult DATE: 07/08/16 TIME: 11:28 Reason for Consult Reason for Consult: RENAL FAILURE Referring Physician Referring Physician: VICKEY Identification/Chief Complaint Chief Complaint ARREST Source Source: Chart review History of Present Illness Reason for Visit: THIS IS A 40 YR OLD WHO HAD AN OUT OF HOSPITAL ARREST. SHE WAS IN PEA AND ASYSTOLE AND RESUSCITATED AND INTUBATED AND IN THE ICU ON A HYPOTHERMIA PROTOCOL. CR IS OVER 3.0 WITH A LOW K. PER SOME FAMILY SHE NEEDED DIALYSIS AT [facility] – [place] A YEAR AGO BUT WAS TAKEN OFF IT. NO OTHER HX AVAILABLE. SHE IS HYPOTENSIVE AND APPARENTLY HAD ANOTHER PEA EPISODE THIS AM Past Medical History Past Medical History UNKNOWN Past Surgical History Past Surgical History UNKNOWN Family History Family History: Hypertension Social History Social History UNKNOWN Current Problem List Problem List Problems Medical Problems: (1) Cardiac arrest Status: Acute (2) Cardiac arrest, cause unspecified Status: Acute (3) Respiratory failure Status: Acute Current Medications Current Medications Current Medications Propofol 50 ml @ As Directed STK-MED ONCE IV ; Start 07/07/16 at 16:29; Stop at 16:30; Status DC Propofol (Diprivan) 100 ml @ 0 mls/hr CONT PRN IV PER PROTOCOL Last administered on 07/08/16 08:32; Start 07/07/16 at 17:30 Fentanyl Citrate (Fentanyl 2ml Vial) 25 mcg PRN Q1HR PRN IV COMM; Start at 17:30 Fentanyl Citrate (Fentanyl 2ml Vial) 50 mcg PRN Q1HR PRN IV COMM; Start at 17:30 Chlorhexidine Gluconate (Peridex) 15 ml BID MM Last administered on 07/08/16 08:42; Start 07/07/16 at 21:00 Morphine Sulfate 2 mg PRN Q1HR PRN IV COMM; Start 07/07/16 at 17:30 Morphine Sulfate 4 mg PRN Q1HR PRN IV COMM; Start 07/07/16 at 17:30 Calcium Chloride 1000 mg 1,000 mg 1X ONCE IV Last administered on 07/07/16 17 :18; Start 07/07/16 at 17:30; Stop 07/07/16 at 17:38; Status DC Sodium Chloride (Iv Sodium Chloride 0.9% 1000ml Bag) 1,000 ml @ 1,000 mls/hr Q1H IV Last administered on 07/07/16 20:04; Start 07/07/16 at 17:25; Stop at 23:36; Status DC Fentanyl Citrate (Fentanyl 2ml Vial) 25 mcg PRN Q30MIN PRN IV SED; Start at 17:30 Lorazepam 1 mg 1 mg PRN Q30MIN PRN IV SEDATION; Start 07/07/16 at 17:30 Fentanyl Citrate 30 ml @ 2.5 mls/hr CONT PRN PRN IV IVF Last administered on 08:32; Start 07/07/16 at 17:30 Propofol (Diprivan) 100 ml @ 0 mls/hr CONT PRN IV SEE I/O RECORD Last administered on 07/07/16 19:48; Start 07/07/16 at 17:30 Vecuronium Penn (Norcuron Bolus) 10 mg PRN Q30MIN PRN IV SHIVERING; Start at 17:30 Meperidine HCl (Demerol) 12.5 mg PRN Q30MIN PRN IV SHIVERING; Start 07/07/16 at 17:30 Multi-Ingred Cream/Lotion/Oil/ Oint (Artificial Tears Eye Oint) 1 silvano PRN Q6HRS PRN OU 0.5 INCH FOR DRY EYE; Start 07/07/16 at 17:30 Famotidine (Pepcid) 20 mg BID IVP Last administered on 07/08/16 08:41; Start 07/07/16 at 21:00 Aspirin (Aspirin) [address] Last administered on 07/08/16 08:41; Start 07/08/16 at 09:00 Sodium Chloride (Normal Saline Flush) 3 ml QSHIFT PRN IV AFTER MEDS AND BLOOD DRAWS; Start 07/07/16 at 17:30 Acetaminophen (Tylenol) 650 mg Q6HRS NG ; Start 07/07/16 at 18:00; Stop at 17:59 Acetaminophen (Tylenol) 650 [address] Q6HRS [address] MILD PAIN / TEMP; Start at 17:30 Acetaminophen (Tylenol) 650 mg PRN Q6HRS PRN NG MILD PAIN / TEMP; Start at 17:30 Info 1 ea DAILY PRN MC PER PROTOCOL; Start 07/09/16 at 17:30 Vancomycin HCl (Vanco Per Pharmacy) 1 each PRN DAILY PRN MC SEE COMMENTS Last administered on 07/07/16 20:29; Start 07/07/16 at 19:00 Piperacillin Sod/ Tazobactam Sod (Zosyn Per Pharmacy) 1 each PRN DAILY PRN MC SEE COMMENTS; Start 07/07/16 at 19:00; Stop 07/08/16 at 07:39; Status DC Levofloxacin/ Dextrose 1 each 1 each PRN DAILY PRN MC SEE COMMENTS; Start 07/07 at 19:00; Stop 07/08/16 at 07:39; Status DC Potassium Chloride 50 ml @ 50 mls/hr Q1H IV Last administered on 07/07/16 20: 46; Start 07/07/16 at 19:30; Stop 07/07/16 at 21:29; Status DC Sodium Chloride (Iv Sodium Chloride 0.9% 1000ml Bag) 1,000 ml @ 175 mls/hr 1X ONCE IV Last administered on 07/07/16 20:52; Start 07/07/16 at 19:30; Stop at 01:12; Status DC Furosemide 40 mg 40 mg 1X ONCE IVP Last administered on 07/07/16 20:54; Start 07/07/16 at 19:30; Stop 07/07/16 at 19:31; Status DC Levofloxacin/ Dextrose 150 ml @ 100 mls/hr 1X ONCE IV Last administered on 23:00; Start 07/07/16 at 19:30; Stop 07/07/16 at 20:59; Status DC Piperacillin Sod/ Tazobactam Sod/ Sodium Chloride (Zosyn/Iv Sodium Chloride 0.9 % 50ml) 50 ml @ 100 mls/hr 1X ONCE IV Last administered on 07/07/16 19:54; Start 07/07/16 at 19:30; Stop 07/07/16 at 19:59; Status DC Insulin Aspart (Novolog) 0-9 UNITS TIDWMEALS SQ ; Start 07/08/16 at 08:00; Stop 07/08/16 at 08:00; Status DC Dextrose 12.5 gm 12.5 gm PRN Q15MIN PRN IV SEE COMMENTS; Start 07/07/16 at 19: 45; Stop 07/07/16 at 20:52; Status DC Vancomycin HCl/ Sodium Chloride (Iv Sodium Chloride 0.9% 500ml Bag) 500 ml @ 250 mls/hr 1X ONCE IV Last administered on 07/07/16 20:48; Start 07/07/16 at 20:30; Stop 07/07/16 at 22:29; Status DC Insulin Aspart 14 units 14 units ONCE ONCE SQ ; Start 07/07/16 at 20:00; Stop 07/07/16 at 20:01; Status DC Piperacillin Sod/ Tazobactam Sod/ Sodium Chloride (Zosyn/Iv Sodium Chloride 0.9 % 50ml) 50 ml @ 100 mls/hr Q6HRS IV Last administered on 07/08/16 06:03; Start 07/08/16 at 00:00 Acetaminophen (Tylenol) 325 mg PRN Q6HRS PRN PO MILD PAIN / TEMP; Start at 20:00 Acetaminophen/ Hydrocodone Bitart (Lortab 5/325) 1 tab PRN Q6HRS PRN PO MODERATE TO SEVERE PAIN; Start 07/07/16 at 20:00 Hydralazine HCl (Apresoline) 10 mg PRN Q4HRS PRN IVP ELEVATED BP, SEE COMMENTS Last administered on 07/07/16 21:48; Start 07/07/16 at 20:00 Ondansetron HCl (Zofran) 4 mg PRN Q8HRS PRN IV NAUSEA/VOMITING; Start 07/07/16 at 20:00 Albuterol Sulfate 2.5 mg 2.5 mg PRN Q4HRS PRN NEB SHORTNESS OF BREATH; Start at 20:00 Levofloxacin/ Dextrose 150 ml @ 100 mls/hr Q48H IV ; Start 07/08/16 at 20:00 Insulin Human Regular/Sodium Chloride (Novolin R Vial/ Iv Normal Saline 150ml) 151.5 ml @ 0 mls/hr CONT PRN IV SEE I/O RECORD Last administered on 07/08/16 10:10; Start 07/07/16 at 21:00 Dextrose 12.5 gm 12.5 gm PRN Q15MIN PRN IV LOW BLOOD SUGAR; Start 07/07/16 at 21:00 Magnesium Sulfate/ Dextrose 100 ml @ 25 mls/hr 1X ONCE IV ; Start 07/07/16 at 23:30; Stop 07/07/16 at 23:30; Status DC Potassium Chloride 50 ml @ 50 mls/hr Q1H IV Last administered on 07/08/16 00: 55; Start 07/07/16 at 23:00; Stop 07/08/16 at 00:59; Status DC Magnesium Sulfate/ Dextrose 50 ml @ 25 mls/hr 1X ONCE IV Last administered on 07/07/16 23:53; Start 07/07/16 at 23:45; Stop 07/08/16 at 01:44; Status DC Potassium Chloride 50 ml @ 50 mls/hr Q1H IV Last administered on 07/08/16 06: 02; Start 07/08/16 at 05:00; Stop 07/08/16 at 06:59; Status DC Norepinephrine Bitartrate/Sodium Chloride (Levophed Vial/ Iv Sodium Chloride 0.9 % 250ml) 258 ml @ 1.93 mls/hr CONT PRN IV SEE I/O RECORD Last administered on 07/08/16 10:34; Start 07/08/16 at 06:45 Heparin Sodium (Porcine) 4000 unit 4,000 unit 1X ONCE IV Last administered on 07/08/16 07:35; Start 07/08/16 at 07:30; Stop 07/08/16 at 07:44; Status DC Heparin Sodium/ Dextrose 500 ml @ 0 mls/hr CONT PRN IV SEE I/O RECORD; Start at 07:30 Heparin Sodium (Porcine) 3,150 unit PRN Q6HRS PRN IV FOR UFH LEVEL LESS THAN 0.2; Start 07/08/16 at 07:30 Lidocaine/Sodium Bicarbonate (Buffered Lidocaine 1%) 3 ml 1X ONCE IJ ; Start at 08:30; Stop 07/08/16 at 08:34; Status DC Heparin Sodium/ Sodium Chloride 60 unit 1X ONCE IV Last administered on 09:31; Start 07/08/16 at 08:30; Stop 07/08/16 at 08:34; Status DC Heparin Sodium (Porcine) 2,500 unit 1X ONCE INT CAT ; Start 07/08/16 at 08:30; Stop 07/08/16 at 08:34; Status DC Epinephrine HCl 1 mg 1 mg STK-MED ONCE .ROUTE ; Start 07/08/16 at 08:55; Stop at 08:56; Status DC Epinephrine HCl/ Sodium Chloride (Adrenalin/Iv Sodium Chloride 0.9% 250ml) 254 ml @ 3.81 mls/hr CONT PRN IV SEE I/O RECORD Last administered on 07/08/16 09: 45; Start 07/08/16 at 09:00 Sodium Bicarbonate 50 meq 1X ONCE IV Last administered on 07/08/16 09:15; Start 07/08/16 at 09:15; Stop 07/08/16 at 09:16; Status DC Epinephrine HCl 1 mg 1 mg 1X ONCE IV Last administered on 07/08/16 09:15; Start 07/08/16 at 09:15; Stop 07/08/16 at 09:16; Status DC Sodium Bicarbonate/ Dextrose 1,150 ml @ 75 mls/hr [id number] IV Last administered on 07/08/16 10:33; Start 07/08/16 at 09:30 Epinephrine HCl (Adrenalin) 30 mg STK-MED ONCE .ROUTE ; Start 07/07/16 at 12:00 ; Stop 07/08/16 at 10:17; Status DC Calcium Chloride 2,000 mg STK-MED ONCE IV ; Start 07/07/16 at 12:00; Stop at 10:17; Status DC Epinephrine HCl 4 mg STK-MED ONCE .ROUTE ; Start 07/07/16 at 12:00; Stop at 10:17; Status DC Sodium Bicarbonate 50 meq STK-MED ONCE .ROUTE ; Start 07/07/16 at 12:00; Stop at 10:17; Status DC Calcium Gluconate 1,000 mg 1X STAT IVP ; Start 07/08/16 at 10:40; Stop at 10:42; Status DC Morphine Sulfate 10 mg STK-MED ONCE .ROUTE ; Start 07/08/16 at 11:02; Stop 07/08 at 11:03; Status DC Allergies Allergies: Coded Allergies: No Known Drug Allergies (Unverified , 07/07/16) ROS Review of System UNABLE TO OBTAIN Physical Exam General: No acute distress HEENT: Atraumatic, Other (ET TUBE) Lungs: Clear to auscultation Heart: Regular rate, Normal S1, Normal S2 Abdomen: Other (HYPOACTIVE) Extremities: No clubbing Neuro: Other (SEDATED) Psych/Mental Status: Other (SEDATED) MUSCULOSKELETAL: No deformity Vitals VITALS Vital Signs Date Time Temp Pulse Resp B/P Pulse Ox O2 Delivery O2 Flow Rate FiO2 07/08/16 11:00 93.1 45 26 71/42 70 Ventilator 93.1 Labs Labs Laboratory Tests Test 07/07/16 16:00 07/07/16 16:30 07/07/16 18:11 07/07/16 20:45 White Blood Count 9.9x10^3/uL (4.0-11.0) Red Blood Count 4.20x10^6/uL (3.50-5.40) Hemoglobin 12.7g/dL (12.0-15.5) Hematocrit 42.5% (36.0-47.0) Mean Corpuscular Volume 101fL (79-100) Mean Corpuscular Hemoglobin 30pg (25-35) Mean Corpuscular Hemoglobin Concent 30g/dL (31-37) Red Cell Distribution Width 17.4% (11.5-14.5) Platelet Count 206x10^3/uL (140-400) Neutrophils (%) (Auto) 64% (31-73) Lymphocytes (%) (Auto) 28% (24-48) Monocytes (%) (Auto) 6% (0-9) Eosinophils (%) (Auto) 2% (0-3) Basophils (%) (Auto) 1% (0-3) Neutrophils # (Auto) 6.3x10^3uL (1.8-7.7) Lymphocytes # (Auto) 2.8x10^3/uL (1.0-4.8) Monocytes # (Auto) 0.6x10^3/uL (0.0-1.1) Eosinophils # (Auto) 0.2x10^3/uL (0.0-0.7) Basophils # (Auto) 0.1x10^3/uL (0.0-0.2) Segmented Neutrophils % 51% (35-66) Band Neutrophils % 4% (0-9) Lymphocytes % 33% (24-48) Monocytes % 7% (0-10) Eosinophils % 2% (0-5) Metamyelocytes % 2% (0-0) Myelocytes % 1% (0-0) Platelet Estimate Adequate (ADEQUATE) Polychromasia Slight Anisocytosis Slight Prothrombin Time 14.5SEC (11.7-14.0) Prothromb Time International Ratio 1.2 (0.8-1.1) Activated Partial Thromboplast Time 43SEC (24-38) Sodium Level 138mmol/L (136-145) Potassium Level 2.8mmol/L (3.5-5.1) Chloride Level 101mmol/L (98-107) Carbon Dioxide Level 19mmol/L (21-32) Anion Gap 18 (6-14) Blood Urea Nitrogen 35mg/dL (7-20) Creatinine 3.9mg/dL (0.6-1.0) Estimated GFR (Cockcroft-Gault) 15.4 Glucose Level 612mg/dL (70-99) Glucose (Fingerstick) 401mg/dL (70-99) 362mg/dL (70-99) Lactic Acid Level 8.8mmol/L (0.4-2.0) Calcium Level 9.1mg/dL (8.5-10.1) Magnesium Level 2.1mg/dL (1.8-2.4) Total Bilirubin 1.0mg/dL (0.2-1.0) Direct Bilirubin 0.6mg/dL (0.0-0.2) Aspartate Amino Transf (AST/SGOT) 66U/L (15-37) Alanine Aminotransferase (ALT/SGPT) 53U/L (14-59) Alkaline Phosphatase 537U/L (46-116) Creatine Kinase 323U/L (26-192) Creatine Kinase MB (Mass) 5.8ng/mL (0.0-3.6) Creatine Kinase MB Relative Index 1.8% (0-4) Troponin I Quantitative 0.194ng/mL (0.000-0.055) FB-Prb-U-Type Natriuretic Peptide 72012lp/mL (0-124) Total Protein 6.5g/dL (6.4-8.2) Albumin 1.7g/dL (3.4-5.0) Amylase Level 30U/L (25-115) O2 Saturation 99% (92-99) Arterial Blood pH 7.15 (7.35-7.45) Arterial Blood pCO2 at Patient Temp 33mmHg (35-46) Arterial Blood pO2 at Patient Temp 305mmHg (75-108) Arterial Blood HCO3 11mmol/L (21-28) Arterial Blood Base Excess -17mmol/L (-3-3) FiO2 100.0 Urine Collection Type U cath Urine Color Yellow Urine Clarity Clear Urine pH 7.0 Urine Specific [place] 1.020 Urine Protein >=300mg/dL (NEG-TRACE) Urine Glucose (UA) >=1000mg/dL (NEG) Urine Ketones (Stick) Negativemg/dL (NEG) Urine Blood Moderate (NEG) Urine Nitrite Negative (NEG) Urine Bilirubin Small (NEG) Urine Urobilinogen Dipstick 1.0mg/dL (0.2 mg/dL) Urine Leukocyte Esterase Negative (NEG) Urine RBC 11-20/HPF (0-2) Urine WBC 1-4/HPF (0-4) Urine Squamous Epithelial Cells Few/LPF Urine Amorphous Sediment Present/HPF Urine Bacteria Moderate/HPF (0-FEW) Urine Mucus Slight/LPF Urine Opiates Screen Neg (NEG) Urine Methadone Screen Neg (NEG) Urine Barbiturates Neg (NEG) Urine Phencyclidine Screen Neg (NEG) Urine Amphetamine/Methamphetamine Neg (NEG) Urine Benzodiazepines Screen Neg (NEG) Urine Cocaine Screen Neg (NEG) Urine Cannabinoids Screen Neg (NEG) Urine Ethyl Alcohol Neg (NEG) Test 07/07/16 20:50 07/07/16 22:36 07/07/16 23:38 07/08/16 00:03 Sodium Level 142mmol/L (136-145) 145mmol/L (136-145) Potassium Level 3.2mmol/L (3.5-5.1) 3.0mmol/L (3.5-5.1) Chloride Level 106mmol/L (98-107) 108mmol/L (98-107) Carbon Dioxide Level 24mmol/L (21-32) 24mmol/L (21-32) Anion Gap 12 (6-14) 13 (6-14) Blood Urea Nitrogen 37mg/dL (7-20) 36mg/dL (7-20) Creatinine 4.0mg/dL (0.6-1.0) 3.9mg/dL (0.6-1.0) Estimated GFR (Cockcroft-Gault) 14.9 15.4 Glucose Level 403mg/dL (70-99) 322mg/dL (70-99) Calcium Level 8.8mg/dL (8.5-10.1) 8.9mg/dL (8.5-10.1) Phosphorus Level 6.6mg/dL (2.6-4.7) 5.7mg/dL (2.6-4.7) Magnesium Level 1.7mg/dL (1.8-2.4) 1.5mg/dL (1.8-2.4) Ammonia 15mcmol/L (11-34) Glucose (Fingerstick) 346mg/dL (70-99) 327mg/dL (70-99) White Blood Count 11.0x10^3/uL (4.0-11.0) Red Blood Count 3.88x10^6/uL (3.50-5.40) Hemoglobin 11.6g/dL (12.0-15.5) Hematocrit 36.8% (36.0-47.0) Mean Corpuscular Volume 95fL (79-100) Mean Corpuscular Hemoglobin 30pg (25-35) Mean Corpuscular Hemoglobin Concent 32g/dL (31-37) Red Cell Distribution Width 16.2% (11.5-14.5) Platelet Count 171x10^3/uL (140-400) Prothrombin Time 13.4SEC (11.7-14.0) Prothromb Time International Ratio 1.1 (0.8-1.1) Activated Partial Thromboplast Time 30SEC (24-38) Lactic Acid Level 1.7mmol/L (0.4-2.0) Troponin I Quantitative 1.497ng/mL (0.000-0.055) Test 07/08/16 00:40 07/08/16 01:00 07/08/16 01:43 07/08/16 02:46 Glucose (Fingerstick) 248mg/dL (70-99) 228mg/dL (70-99) 219mg/dL (70-99) O2 Saturation 95% (92-99) Arterial Blood pH 7.31 (7.35-7.45) Arterial Blood pH (Temp corrected) 7.38 Arterial Blood pCO2 at Patient Temp 38mmHg (35-46) Arterial Blood pCO2 (Temp correct) 31mmHg Arterial Blood pO2 at Patient Temp 83mmHg (75-108) Arterial Blood pO2 (Temp corrected) 61mmHg Arterial Blood HCO3 19mmol/L (21-28) Arterial Blood Base Excess -7mmol/L (-3-3) Oxyhemoglobin 94.7% Methemoglobin 0.1% (0.0-1.9) Carbon Monoxide, Quantitative 0.5% (0.0-1.9) FiO2 80 Test 07/08/16 03:45 07/08/16 03:48 07/08/16 04:52 07/08/16 05:45 Sodium Level 144mmol/L (136-145) Potassium Level 3.1mmol/L (3.5-5.1) Chloride Level 108mmol/L (98-107) Carbon Dioxide Level 21mmol/L (21-32) Anion Gap 15 (6-14) Blood Urea Nitrogen 35mg/dL (7-20) Creatinine 3.7mg/dL (0.6-1.0) Estimated GFR (Cockcroft-Gault) 16.3 Glucose Level 206mg/dL (70-99) Calcium Level 8.8mg/dL (8.5-10.1) Phosphorus Level 5.0mg/dL (2.6-4.7) Magnesium Level 2.2mg/dL (1.8-2.4) Glucose (Fingerstick) 174mg/dL (70-99) 158mg/dL (70-99) White Blood Count 10.3x10^3/uL (4.0-11.0) Red Blood Count 3.68x10^6/uL (3.50-5.40) Hemoglobin 11.1g/dL (12.0-15.5) Hematocrit 34.5% (36.0-47.0) Mean Corpuscular Volume 94fL (79-100) Mean Corpuscular Hemoglobin 30pg (25-35) Mean Corpuscular Hemoglobin Concent 32g/dL (31-37) Red Cell Distribution Width 15.9% (11.5-14.5) Platelet Count 167x10^3/uL (140-400) Prothrombin Time 13.7SEC (11.7-14.0) Prothromb Time International Ratio 1.1 (0.8-1.1) Activated Partial Thromboplast Time 31SEC (24-38) Lactic Acid Level 2.2mmol/L (0.4-2.0) Ionized Calcium 1.17mmol/L (1.13-1.32) Total Bilirubin 1.0mg/dL (0.2-1.0) Direct Bilirubin 0.7mg/dL (0.0-0.2) Aspartate Amino Transf (AST/SGOT) 37U/L (15-37) Alanine Aminotransferase (ALT/SGPT) 46U/L (14-59) Alkaline Phosphatase 438U/L (46-116) Troponin I Quantitative 2.996ng/mL (0.000-0.055) Total Protein 5.9g/dL (6.4-8.2) Albumin 1.4g/dL (3.4-5.0) Lipase 693U/L (73-393) Test 07/08/16 05:51 07/08/16 06:58 07/08/16 08:06 07/08/16 08:30 Glucose (Fingerstick) 135mg/dL (70-99) 180mg/dL (70-99) 175mg/dL (70-99) O2 Saturation 77% (92-99) Arterial Blood pH 7.18 (7.35-7.45) Arterial Blood pCO2 at Patient Temp 47mmHg (35-46) Arterial Blood pO2 at Patient Temp 52mmHg (75-108) Arterial Blood HCO3 17mmol/L (21-28) Arterial Blood Base Excess -11mmol/L (-3-3) Oxyhemoglobin 76.2% Methemoglobin 0.1% (0.0-1.9) Carbon Monoxide, Quantitative 0.6% (0.0-1.9) FiO2 100 Test 07/08/16 09:16 07/08/16 10:00 07/08/16 10:07 Glucose (Fingerstick) 200mg/dL (70-99) 233mg/dL (70-99) Sodium Level 147mmol/L (136-145) Potassium Level 2.5mmol/L (3.5-5.1) Chloride Level 109mmol/L (98-107) Carbon Dioxide Level 18mmol/L (21-32) Anion Gap 20 (6-14) Blood Urea Nitrogen 38mg/dL (7-20) Creatinine 4.1mg/dL (0.6-1.0) Estimated GFR (Cockcroft-Gault) 14.5 BUN/Creatinine Ratio 9 (6-20) Glucose Level 270mg/dL (70-99) Calcium Level 8.3mg/dL (8.5-10.1) Total Bilirubin 1.2mg/dL (0.2-1.0) Aspartate Amino Transf (AST/SGOT) 48U/L (15-37) Alanine Aminotransferase (ALT/SGPT) 49U/L (14-59) Alkaline Phosphatase 398U/L (46-116) Total Protein 5.7g/dL (6.4-8.2) Albumin 1.4g/dL (3.4-5.0) Albumin/Globulin Ratio 0.3 (1.0-1.7) Laboratory Tests Test 07/07/16 16:00 07/07/16 16:30 07/07/16 18:11 07/07/16 20:45 White Blood Count 9.9x10^3/uL (4.0-11.0) Red Blood Count 4.20x10^6/uL (3.50-5.40) Hemoglobin 12.7g/dL (12.0-15.5) Hematocrit 42.5% (36.0-47.0) Mean Corpuscular Volume 101fL (79-100) Mean Corpuscular Hemoglobin 30pg (25-35) Mean Corpuscular Hemoglobin Concent 30g/dL (31-37) Red Cell Distribution Width 17.4% (11.5-14.5) Platelet Count 206x10^3/uL (140-400) Neutrophils (%) (Auto) 64% (31-73) Lymphocytes (%) (Auto) 28% (24-48) Monocytes (%) (Auto) 6% (0-9) Eosinophils (%) (Auto) 2% (0-3) Basophils (%) (Auto) 1% (0-3) Neutrophils # (Auto) 6.3x10^3uL (1.8-7.7) Lymphocytes # (Auto) 2.8x10^3/uL (1.0-4.8) Monocytes # (Auto) 0.6x10^3/uL (0.0-1.1) Eosinophils # (Auto) 0.2x10^3/uL (0.0-0.7) Basophils # (Auto) 0.1x10^3/uL (0.0-0.2) Segmented Neutrophils % 51% (35-66) Band Neutrophils % 4% (0-9) Lymphocytes % 33% (24-48) Monocytes % 7% (0-10) Eosinophils % 2% (0-5) Metamyelocytes % 2% (0-0) Myelocytes % 1% (0-0) Platelet Estimate Adequate (ADEQUATE) Polychromasia Slight Anisocytosis Slight Prothrombin Time 14.5SEC (11.7-14.0) Prothromb Time International Ratio 1.2 (0.8-1.1) Activated Partial Thromboplast Time 43SEC (24-38) Sodium Level 138mmol/L (136-145) Potassium Level 2.8mmol/L (3.5-5.1) Chloride Level 101mmol/L (98-107) Carbon Dioxide Level 19mmol/L (21-32) Anion Gap 18 (6-14) Blood Urea Nitrogen 35mg/dL (7-20) Creatinine 3.9mg/dL (0.6-1.0) Estimated GFR (Cockcroft-Gault) 15.4 Glucose Level 612mg/dL (70-99) Glucose (Fingerstick) 401mg/dL (70-99) 362mg/dL (70-99) Lactic Acid Level 8.8mmol/L (0.4-2.0) Calcium Level 9.1mg/dL (8.5-10.1) Magnesium Level 2.1mg/dL (1.8-2.4) Total Bilirubin 1.0mg/dL (0.2-1.0) Direct Bilirubin 0.6mg/dL (0.0-0.2) Aspartate Amino Transf (AST/SGOT) 66U/L (15-37) Alanine Aminotransferase (ALT/SGPT) 53U/L (14-59) Alkaline Phosphatase 537U/L (46-116) Creatine Kinase 323U/L (26-192) Creatine Kinase MB (Mass) 5.8ng/mL (0.0-3.6) Creatine Kinase MB Relative Index 1.8% (0-4) Troponin I Quantitative 0.194ng/mL (0.000-0.055) GG-Oef-F-Type Natriuretic Peptide 81180li/mL (0-124) Total Protein 6.5g/dL (6.4-8.2) Albumin 1.7g/dL (3.4-5.0) Amylase Level 30U/L (25-115) O2 Saturation 99% (92-99) Arterial Blood pH 7.15 (7.35-7.45) Arterial Blood pCO2 at Patient Temp 33mmHg (35-46) Arterial Blood pO2 at Patient Temp 305mmHg (75-108) Arterial Blood HCO3 11mmol/L (21-28) Arterial Blood Base Excess -17mmol/L (-3-3) FiO2 100.0 Urine Collection Type U cath Urine Color Yellow Urine Clarity Clear Urine pH 7.0 Urine Specific [place] 1.020 Urine Protein >=300mg/dL (NEG-TRACE) Urine Glucose (UA) >=1000mg/dL (NEG) Urine Ketones (Stick) Negativemg/dL (NEG) Urine Blood Moderate (NEG) Urine Nitrite Negative (NEG) Urine Bilirubin Small (NEG) Urine Urobilinogen Dipstick 1.0mg/dL (0.2 mg/dL) Urine Leukocyte Esterase Negative (NEG) Urine RBC 11-20/HPF (0-2) Urine WBC 1-4/HPF (0-4) Urine Squamous Epithelial Cells Few/LPF Urine Amorphous Sediment Present/HPF Urine Bacteria Moderate/HPF (0-FEW) Urine Mucus Slight/LPF Urine Opiates Screen Neg (NEG) Urine Methadone Screen Neg (NEG) Urine Barbiturates Neg (NEG) Urine Phencyclidine Screen Neg (NEG) Urine Amphetamine/Methamphetamine Neg (NEG) Urine Benzodiazepines Screen Neg (NEG) Urine Cocaine Screen Neg (NEG) Urine Cannabinoids Screen Neg (NEG) Urine Ethyl Alcohol Neg (NEG) Test 07/07/16 20:50 07/07/16 22:36 07/07/16 23:38 07/08/16 00:03 Sodium Level 142mmol/L (136-145) 145mmol/L (136-145) Potassium Level 3.2mmol/L (3.5-5.1) 3.0mmol/L (3.5-5.1) Chloride Level 106mmol/L (98-107) 108mmol/L (98-107) Carbon Dioxide Level 24mmol/L (21-32) 24mmol/L (21-32) Anion Gap 12 (6-14) 13 (6-14) Blood Urea Nitrogen 37mg/dL (7-20) 36mg/dL (7-20) Creatinine 4.0mg/dL (0.6-1.0) 3.9mg/dL (0.6-1.0) Estimated GFR (Cockcroft-Gault) 14.9 15.4 Glucose Level 403mg/dL (70-99) 322mg/dL (70-99) Calcium Level 8.8mg/dL (8.5-10.1) 8.9mg/dL (8.5-10.1) Phosphorus Level 6.6mg/dL (2.6-4.7) 5.7mg/dL (2.6-4.7) Magnesium Level 1.7mg/dL (1.8-2.4) 1.5mg/dL (1.8-2.4) Ammonia 15mcmol/L (11-34) Glucose (Fingerstick) 346mg/dL (70-99) 327mg/dL (70-99) White Blood Count 11.0x10^3/uL (4.0-11.0) Red Blood Count 3.88x10^6/uL (3.50-5.40) Hemoglobin 11.6g/dL (12.0-15.5) Hematocrit 36.8% (36.0-47.0) Mean Corpuscular Volume 95fL (79-100) Mean Corpuscular Hemoglobin 30pg (25-35) Mean Corpuscular Hemoglobin Concent 32g/dL (31-37) Red Cell Distribution Width 16.2% (11.5-14.5) Platelet Count 171x10^3/uL (140-400) Prothrombin Time 13.4SEC (11.7-14.0) Prothromb Time International Ratio 1.1 (0.8-1.1) Activated Partial Thromboplast Time 30SEC (24-38) Lactic Acid Level 1.7mmol/L (0.4-2.0) Troponin I Quantitative 1.497ng/mL (0.000-0.055) Test 07/08/16 00:40 07/08/16 01:00 07/08/16 01:43 07/08/16 02:46 Glucose (Fingerstick) 248mg/dL (70-99) 228mg/dL (70-99) 219mg/dL (70-99) O2 Saturation 95% (92-99) Arterial Blood pH 7.31 (7.35-7.45) Arterial Blood pH (Temp corrected) 7.38 Arterial Blood pCO2 at Patient Temp 38mmHg (35-46) Arterial Blood pCO2 (Temp correct) 31mmHg Arterial Blood pO2 at Patient Temp 83mmHg (75-108) Arterial Blood pO2 (Temp corrected) 61mmHg Arterial Blood HCO3 19mmol/L (21-28) Arterial Blood Base Excess -7mmol/L (-3-3) Oxyhemoglobin 94.7% Methemoglobin 0.1% (0.0-1.9) Carbon Monoxide, Quantitative 0.5% (0.0-1.9) FiO2 80 Test 07/08/16 03:45 07/08/16 03:48 07/08/16 04:52 07/08/16 05:45 Sodium Level 144mmol/L (136-145) Potassium Level 3.1mmol/L (3.5-5.1) Chloride Level 108mmol/L (98-107) Carbon Dioxide Level 21mmol/L (21-32) Anion Gap 15 (6-14) Blood Urea Nitrogen 35mg/dL (7-20) Creatinine 3.7mg/dL (0.6-1.0) Estimated GFR (Cockcroft-Gault) 16.3 Glucose Level 206mg/dL (70-99) Calcium Level 8.8mg/dL (8.5-10.1) Phosphorus Level 5.0mg/dL (2.6-4.7) Magnesium Level 2.2mg/dL (1.8-2.4) Glucose (Fingerstick) 174mg/dL (70-99) 158mg/dL (70-99) White Blood Count 10.3x10^3/uL (4.0-11.0) Red Blood Count 3.68x10^6/uL (3.50-5.40) Hemoglobin 11.1g/dL (12.0-15.5) Hematocrit 34.5% (36.0-47.0) Mean Corpuscular Volume 94fL (79-100) Mean Corpuscular Hemoglobin 30pg (25-35) Mean Corpuscular Hemoglobin Concent 32g/dL (31-37) Red Cell Distribution Width 15.9% (11.5-14.5) Platelet Count 167x10^3/uL (140-400) Prothrombin Time 13.7SEC (11.7-14.0) Prothromb Time International Ratio 1.1 (0.8-1.1) Activated Partial Thromboplast Time 31SEC (24-38) Lactic Acid Level 2.2mmol/L (0.4-2.0) Ionized Calcium 1.17mmol/L (1.13-1.32) Total Bilirubin 1.0mg/dL (0.2-1.0) Direct Bilirubin 0.7mg/dL (0.0-0.2) Aspartate Amino Transf (AST/SGOT) 37U/L (15-37) Alanine Aminotransferase (ALT/SGPT) 46U/L (14-59) Alkaline Phosphatase 438U/L (46-116) Troponin I Quantitative 2.996ng/mL (0.000-0.055) Total Protein 5.9g/dL (6.4-8.2) Albumin 1.4g/dL (3.4-5.0) Lipase 693U/L (73-393) Test 07/08/16 05:51 07/08/16 06:58 07/08/16 08:06 07/08/16 08:30 Glucose (Fingerstick) 135mg/dL (70-99) 180mg/dL (70-99) 175mg/dL (70-99) O2 Saturation 77% (92-99) Arterial Blood pH 7.18 (7.35-7.45) Arterial Blood pCO2 at Patient Temp 47mmHg (35-46) Arterial Blood pO2 at Patient Temp 52mmHg (75-108) Arterial Blood HCO3 17mmol/L (21-28) Arterial Blood Base Excess -11mmol/L (-3-3) Oxyhemoglobin 76.2% Methemoglobin 0.1% (0.0-1.9) Carbon Monoxide, Quantitative 0.6% (0.0-1.9) FiO2 100 Test 07/08/16 09:16 07/08/16 10:00 07/08/16 10:07 Glucose (Fingerstick) 200mg/dL (70-99) 233mg/dL (70-99) Sodium Level 147mmol/L (136-145) Potassium Level 2.5mmol/L (3.5-5.1) Chloride Level 109mmol/L (98-107) Carbon Dioxide Level 18mmol/L (21-32) Anion Gap 20 (6-14) Blood Urea Nitrogen 38mg/dL (7-20) Creatinine 4.1mg/dL (0.6-1.0) Estimated GFR (Cockcroft-Gault) 14.5 BUN/Creatinine Ratio 9 (6-20) Glucose Level 270mg/dL (70-99) Calcium Level 8.3mg/dL (8.5-10.1) Total Bilirubin 1.2mg/dL (0.2-1.0) Aspartate Amino Transf (AST/SGOT) 48U/L (15-37) Alanine Aminotransferase (ALT/SGPT) 49U/L (14-59) Alkaline Phosphatase 398U/L (46-116) Total Protein 5.7g/dL (6.4-8.2) Albumin 1.4g/dL (3.4-5.0) Albumin/Globulin Ratio 0.3 (1.0-1.7) Assessment/Plan Assessment/Plan IMP S/P CARDIAC ARREST PEA RESP FAILURE RENAL FAILURE-CHRONIC AND ACUTE PROB HYPOKALEMIA HYPOTENSION PLAN VOLUME EXPAND PRESSORS CALCIUM GLUCONATE HCO3 DIALYSIS IF FEASIBLE K REPLACEMENT PT HAS A BP OF 40 TO 50, I HAVE ASKED FOR A FLUID BOLUS AND ABOVE. ALSO HAD A HD CATHETER PLACED THIS AM FOR DIALYSIS. AT THIS POINT SHE IS TOO ILL FOR A DIALYSIS INCLUDING CRRT. I HAVE UPDATED FAMILY AND EXPLAINED THAT SHE IS CRITICALLY ILL AND THAT SHE IS NOT DOING WELL. EXPECT CODE AND POOR CHANCE OF SURVIVAL JES CASTELLANOS MD Jul 08, 2016 11:35
[2016-07-08] MEDS ORDERED: ACETAMINOPHEN 650 MG/20.3 ML SOLUTION. NG PRN (17:30)
[2016-07-08] MEDS ORDERED: ACETAMINOPHEN 650 MG SUPP.RECT. PR PRN (17:30)
--- NOTE | 2016-07-08 18:01 | CARD ---
APPROVED REPORT EXAM: Two-dimensional and M-mode echocardiogram with Doppler and color Doppler. Other Information Quality : GoodHR: 62bpm Rhythm : NSR INDICATION Cardiac arrest, Respiratory failure RISK FACTORS Obesity 2D DIMENSIONS RVDd2.5 (2.9-3.5cm)Left Atrium(2D)2.6 (1.6-4.0cm) IVSd1.4 (0.7-1.1cm)Aortic Root(2D)2.3 (2.0-3.7cm) LVDd3.4 (3.9-5.9cm)LVOT Diameter2.3 (1.8-2.4cm) PWd1.7 (0.7-1.1cm)LVDs2.3 (2.5-4.0cm) FS (%) 32.2 %SV28.7 ml LVEF(%)61.6 (>50%) Aortic Valve AoV Peak Mario.169.7cm/sAoV VTI22.3cm AO Peak GR.11.5mmHgAO Mean GR.7mmHg Mitral Valve MV E Ksireuev24.0cm/sMV DECEL [id number] MV A Pkdxgyxy87.2cm/sE/A Ratio1.8 MV A [id number] TDI Lateral E' P. V7.34cm/sMedial E' P. V5.86cm/s E/Lateral E'10.9E/Medial E'13.7 LEFT VENTRICLE The left ventricle is normal size. There is severe concentric left ventricular hypertrophy. The echo findings are not consistent with hypertrophic cardiomyopathy. The left ventricular systolic function is normal and the ejection fraction is within normal range. The Ejection Fraction is 65-70%. There is normal LV segmental wall motion. The left ventricular diastolic function and filling is normal for a ge. RIGHT VENTRICLE The right ventricle is normal size. There is normal right ventricular wall thickness. The right ventr icular systolic function is normal. ATRIA The left atrium size is normal. The right atrium size is normal. The interatrial septum is intact wit h no evidence for an atrial septal defect or patent foramen ovale as noted on 2-D or Doppler imaging. AORTIC VALVE The aortic valve is normal in structure and function. Doppler and Color Flow revealed no significant aortic regurgitation. There is no significant aortic valvular stenosis. MITRAL VALVE The mitral valve is normal in structure and function. There is no evidence of mitral valve prolapse. There is no mitral valve stenosis. Doppler and Color Flow revealed trace mitral regurgitation. TRICUSPID VALVE Doppler and Color Flow revealed trace tricuspid regurgitation. There is no pulmonary hypertension. PULMONIC VALVE Doppler and Color Flow revealed no pulmonic valvular regurgitation. There is no pulmonic valvular boo nosis. GREAT VESSELS The aortic root is normal in size. The ascending aorta is normal in size. The IVC is normal in size a nd collapses >50% with inspiration. PERICARDIAL EFFUSION There is no evidence of significant pericardial effusion. Critical Notification Critical Value: No <Conclusion> The left ventricular systolic function is normal and the ejection fraction is within normal range. Th e Ejection Fraction is 65-70%. There is severe concentric left ventricular hypertrophy, likely secondary to HTN.
--- NOTE | 2016-07-08 18:25 | PDOC ---
PROGRESS NOTES Chief Complaint Chief Complaint Cardiac arrest at ER presentation, with successful resuscitation, intubation. unfortunately, had 2nd and 3rd arrest. in discussion with extensive family, incl daughters and sisters, consensus was reached to not undergo further CPR. pt at 11:15 AM. Vitals Vitals Vital Signs Date Time Temp Pulse Resp B/P Pulse Ox O2 Delivery O2 Flow Rate FiO2 07/08/16 11:00 93.1 45 26 71/42 70 Ventilator 93.1 Physical Exam General: No acute distress, Other (sedated) Heart: Normal S1, Normal S2, No murmurs Abdomen: Soft, Other (truncal obesity) Extremities: No edema Skin: No rashes Labs LABS Laboratory Tests Test 07/07/16 20:45 07/07/16 20:50 07/07/16 22:36 07/07/16 23:38 Glucose (Fingerstick) 362mg/dL (70-99) 346mg/dL (70-99) 327mg/dL (70-99) Sodium Level 142mmol/L (136-145) Potassium Level 3.2mmol/L (3.5-5.1) Chloride Level 106mmol/L (98-107) Carbon Dioxide Level 24mmol/L (21-32) Anion Gap 12 (6-14) Blood Urea Nitrogen 37mg/dL (7-20) Creatinine 4.0mg/dL (0.6-1.0) Estimated GFR (Cockcroft-Gault) 14.9 Glucose Level 403mg/dL (70-99) Calcium Level 8.8mg/dL (8.5-10.1) Phosphorus Level 6.6mg/dL (2.6-4.7) Magnesium Level 1.7mg/dL (1.8-2.4) Ammonia 15mcmol/L (11-34) Test 07/08/16 00:03 07/08/16 00:40 07/08/16 01:00 07/08/16 01:43 White Blood Count 11.0x10^3/uL (4.0-11.0) Red Blood Count 3.88x10^6/uL (3.50-5.40) Hemoglobin 11.6g/dL (12.0-15.5) Hematocrit 36.8% (36.0-47.0) Mean Corpuscular Volume 95fL (79-100) Mean Corpuscular Hemoglobin 30pg (25-35) Mean Corpuscular Hemoglobin Concent 32g/dL (31-37) Red Cell Distribution Width 16.2% (11.5-14.5) Platelet Count 171x10^3/uL (140-400) Prothrombin Time 13.4SEC (11.7-14.0) Prothromb Time International Ratio 1.1 (0.8-1.1) Activated Partial Thromboplast Time 30SEC (24-38) Sodium Level 145mmol/L (136-145) Potassium Level 3.0mmol/L (3.5-5.1) Chloride Level 108mmol/L (98-107) Carbon Dioxide Level 24mmol/L (21-32) Anion Gap 13 (6-14) Blood Urea Nitrogen 36mg/dL (7-20) Creatinine 3.9mg/dL (0.6-1.0) Estimated GFR (Cockcroft-Gault) 15.4 Glucose Level 322mg/dL (70-99) Lactic Acid Level 1.7mmol/L (0.4-2.0) Calcium Level 8.9mg/dL (8.5-10.1) Phosphorus Level 5.7mg/dL (2.6-4.7) Magnesium Level 1.5mg/dL (1.8-2.4) Troponin I Quantitative 1.497ng/mL (0.000-0.055) Glucose (Fingerstick) 248mg/dL (70-99) 228mg/dL (70-99) O2 Saturation 95% (92-99) Arterial Blood pH 7.31 (7.35-7.45) Arterial Blood pH (Temp corrected) 7.38 Arterial Blood pCO2 at Patient Temp 38mmHg (35-46) Arterial Blood pCO2 (Temp correct) 31mmHg Arterial Blood pO2 at Patient Temp 83mmHg (75-108) Arterial Blood pO2 (Temp corrected) 61mmHg Arterial Blood HCO3 19mmol/L (21-28) Arterial Blood Base Excess -7mmol/L (-3-3) Oxyhemoglobin 94.7% Methemoglobin 0.1% (0.0-1.9) Carbon Monoxide, Quantitative 0.5% (0.0-1.9) FiO2 80 Test 3/16/17 02:46 07/08/16 03:45 07/08/16 03:48 07/08/16 04:52 Glucose (Fingerstick) 219mg/dL (70-99) 174mg/dL (70-99) 158mg/dL (70-99) Sodium Level 144mmol/L (136-145) Potassium Level 3.1mmol/L (3.5-5.1) Chloride Level 108mmol/L (98-107) Carbon Dioxide Level 21mmol/L (21-32) Anion Gap 15 (6-14) Blood Urea Nitrogen 35mg/dL (7-20) Creatinine 3.7mg/dL (0.6-1.0) Estimated GFR (Cockcroft-Gault) 16.3 Glucose Level 206mg/dL (70-99) Calcium Level 8.8mg/dL (8.5-10.1) Phosphorus Level 5.0mg/dL (2.6-4.7) Magnesium Level 2.2mg/dL (1.8-2.4) Test 07/08/16 05:45 07/08/16 05:51 07/08/16 06:58 07/08/16 08:06 White Blood Count 10.3x10^3/uL (4.0-11.0) Red Blood Count 3.68x10^6/uL (3.50-5.40) Hemoglobin 11.1g/dL (12.0-15.5) Hematocrit 34.5% (36.0-47.0) Mean Corpuscular Volume 94fL (79-100) Mean Corpuscular Hemoglobin 30pg (25-35) Mean Corpuscular Hemoglobin Concent 32g/dL (31-37) Red Cell Distribution Width 15.9% (11.5-14.5) Platelet Count 167x10^3/uL (140-400) Prothrombin Time 13.7SEC (11.7-14.0) Prothromb Time International Ratio 1.1 (0.8-1.1) Activated Partial Thromboplast Time 31SEC (24-38) Lactic Acid Level 2.2mmol/L (0.4-2.0) Ionized Calcium 1.17mmol/L (1.13-1.32) Total Bilirubin 1.0mg/dL (0.2-1.0) Direct Bilirubin 0.7mg/dL (0.0-0.2) Aspartate Amino Transf (AST/SGOT) 37U/L (15-37) Alanine Aminotransferase (ALT/SGPT) 46U/L (14-59) Alkaline Phosphatase 438U/L (46-116) Troponin I Quantitative 2.996ng/mL (0.000-0.055) Total Protein 5.9g/dL (6.4-8.2) Albumin 1.4g/dL (3.4-5.0) Lipase 693U/L (73-393) Glucose (Fingerstick) 135mg/dL (70-99) 180mg/dL (70-99) 175mg/dL (70-99) Test 07/08/16 08:30 07/08/16 09:16 07/08/16 10:00 07/08/16 10:07 O2 Saturation 77% (92-99) Arterial Blood pH 7.18 (7.35-7.45) Arterial Blood pCO2 at Patient Temp 47mmHg (35-46) Arterial Blood pO2 at Patient Temp 52mmHg (75-108) Arterial Blood HCO3 17mmol/L (21-28) Arterial Blood Base Excess -11mmol/L (-3-3) Oxyhemoglobin 76.2% Methemoglobin 0.1% (0.0-1.9) Carbon Monoxide, Quantitative 0.6% (0.0-1.9) FiO2 100 Glucose (Fingerstick) 200mg/dL (70-99) 233mg/dL (70-99) Sodium Level 147mmol/L (136-145) Potassium Level 2.5mmol/L (3.5-5.1) Chloride Level 109mmol/L (98-107) Carbon Dioxide Level 18mmol/L (21-32) Anion Gap 20 (6-14) Blood Urea Nitrogen 38mg/dL (7-20) Creatinine 4.1mg/dL (0.6-1.0) Estimated GFR (Cockcroft-Gault) 14.5 BUN/Creatinine Ratio 9 (6-20) Glucose Level 270mg/dL (70-99) Calcium Level 8.3mg/dL (8.5-10.1) Total Bilirubin 1.2mg/dL (0.2-1.0) Aspartate Amino Transf (AST/SGOT) 48U/L (15-37) Alanine Aminotransferase (ALT/SGPT) 49U/L (14-59) Alkaline Phosphatase 398U/L (46-116) Total Protein 5.7g/dL (6.4-8.2) Albumin 1.4g/dL (3.4-5.0) Albumin/Globulin Ratio 0.3 (1.0-1.7) JAMMIE HOPKINS MD Jul 08, 2016 18:25
--- NOTE | 2016-07-08 22:54 | DS ---
DATE OF DISCHARGE: 07/08/2016 CHIEF COMPLAINT: Cardiac arrest. HOSPITAL COURSE: The patient is a 40-year-old obese -[place] woman with a past medical history of diabetes type 2, congestive heart failure, episodes of renal failure requiring dialysis, who presented to the Emergency Room via EMS [place]. She did receive CPR immediately, was brought to the Emergency Room with agonal breathing, but spontaneous circulation could be observed. However, had a second episode of asystole. ACLS was once again started. The patient was intubated and transferred to the ICU. There she unfortunately sustained a third event in the morning and in discussion with extensive family including daughters and sisters, decision was made to perform no further attempts. The patient therefore on 07/08/2016 at 11:15 a.m. DISCHARGE DISPOSITION: , cardiac arrest. JAMMIE HOPKINS MD DR: UR/nts JOB#: [id number] / [id number] PIPER
--- NOTE | 2016-07-09 08:14 | RAD ---
Ultrasound-guided insertion of triple-lumen Trialysis temporary hemodialysis catheter Indication: 40-year-old female ICU patient post cardiac arrest, unresponsive on ventilator. Hypotensive. Bedside ICU triple-lumen temporary dialysis catheter insertion has been requested. Anesthesia: Local only Sterility: All elements of maximal sterile barrier technique, including the use of a cap, mask, sterile gown, sterile gloves, large sterile sheet, appropriate hand hygiene, and 2% chlorhexidine for cutaneous antisepsis (or acceptable alternative antiseptic per current guidelines) were utilized. Procedure: Informed consent was obtained from the patient. This procedure was performed bedside in the intensive care unit. Preliminary ultrasound examination of right neck revealed wide patency of right external jugular vein, which was documented with a single hard copy ultrasound image. Right neck was then prepped and draped in the usual sterile fashion, utilizing all elements of maximal sterile barrier technique, as described above. Using aseptic technique and local anesthesia, a small skin incision was made lateral to right external jugular vein, just above clavicle. Using aseptic technique, local anesthesia, and direct ultrasound guidance, a small micropuncture sheath was successfully introduced through the supraclavicular dermatotomy into external internal jugular vein. The micropuncture sheath was then removed over a guidewire. The percutaneous tract was dilated and a 13 Indian triple lumen 20 cm Trialysis temporary hemodialysis catheter was easily advanced centrally. All three lumens of the dialysis catheter were documented to flush and aspirate normally. The two dialysis catheter lumens were packed with heparin. The Trialysis catheter was then secured at the skin exit site utilizing suture and sterile dressing. Patient tolerated the procedure well without apparent complication. A stat portable chest x-ray was requested for catheter position. Impression: Ultrasound-guided insertion of a 13 Indian triple lumen 20 cm Trialysis temporary hemodialysis catheter, bedside in the intensive care unit, as described.
[2016-07-09] MEDS ORDERED: ELECTROLYTE (ICU) PROTOCOL. MC PRN (17:30)
== END 2016-07-08 14:30 | disposition expired | DRG 208 ==
LOC: ER 15:59 → 1 WEST ICU 18:00
PROVIDERS: ADMIT Internal Medicine; ATTEND Internal Medicine
PROC: 5A1935Z Respiratory Ventilation, Less than 24 Consecutive Hours (ICD-10-PCS; principal; 2016-07-07)
PROC: 0BH17EZ Insertion of Endotracheal Airway into Trachea, Via Natural or Artificial Opening (ICD-10-PCS; 2016-07-07)
PROC: 5A12012 Performance of Cardiac Output, Single, Manual (ICD-10-PCS; 2016-07-07)
PROC: 02H633Z Insertion of Infusion Device into Right Atrium, Percutaneous Approach (ICD-10-PCS; 2016-07-08)
PROC: B244ZZZ Ultrasonography of Right Heart (ICD-10-PCS; 2016-07-08)
DX: J96.01 Acute respiratory failure with hypoxia (principal); N17.9 Acute kidney failure, unspecified; E87.2 Acidosis; Z68.41 Body mass index [BMI] 40.0-44.9, adult; I13.0 Hypertensive heart and chronic kidney disease with heart failure and stage 1 through stage 4 chronic kidney disease, or unspecified chronic kidney disease; I46.9 Cardiac arrest, cause unspecified; E11.65 Type 2 diabetes mellitus with hyperglycemia; E87.6 Hypokalemia; Z82.49 Family history of ischemic heart disease and other diseases of the circulatory system; Z79.4 Long term (current) use of insulin; E66.9 Obesity, unspecified; I50.9 Heart failure, unspecified; E11.22 Type 2 diabetes mellitus with diabetic chronic kidney disease; N18.9 Chronic kidney disease, unspecified
CPT/HCPCS: 36415; 36556; 36600; 71010; 76937; 80048; 80053; 80076; 81001; 82140; 82150; 82310; 82553; 82805; 82947; 83605; 83690; 83735; 83880; 84100; 84484; 85007; 85027; 85610; 85730; 87040; 87086; 87641; 93005; 93306; 94002; 94003; C1769; C1892; G0481; J0171; J0360; J1265; J1815; J1940; J1956; J2270; J2543; J2704; J3010; J3370; J3480; J3490; J7030; J7040; J7050; J7060; S0028